=== PATIENT | female | born 1955 | race African-American/Black ===

== ENCOUNTER 2016-09-04 16:00 | Emergency (ER) | payer SELFPAY ==
[~2016-09-04] VITALS: Ht 162.6 cm; Wt 59.0 kg
[2016-09-04 16:01] VITALS: BP 144/66; PULSE 92; RESP 17; TEMP 98.1; O2SAT 98
--- NOTE | 2016-09-04 16:14 | PD ---
Physical Exam Date Seen by Provider: Sep 04, 2016 Time Seen by Provider: 16:12 Narrative 61 year old female presents to the emergency department for evaluation of LLQ pain for 2-3 days. No fevers, nausea, vomiting, diarrhea. Patient awaiting bed placement. Data Data Last Documented VS Vital Signs Date Time Temp Pulse Resp B/P Pulse Ox O2 Delivery O2 Flow Rate FiO2 09/04/16 16:01 98.1 92 17 144/66 98 MDM Supervised Visit with BENITO: Lauryn Fregoso Sep 04, 2016 16:14
[2016-09-04 17:25] VITALS: BP 143/70; PULSE 79; RESP 16; O2SAT 99
--- NOTE | 2016-09-04 17:29 | PD ---
HPI Chief Complaint: Abdominal Pain Time Seen by Provider: 17:29 Travel History International Travel<30 days: No Contact w/Intl Traveler<30days: No Traveled to known affect area: No History of Present Illness HPI 61-year-old female presents to the emergency department complaint of left lower quadrant abdominal pain for the last 2-3 days. She says it feels like gas pain. Denies history of diverticulosis. She took a laxative this morning and had a normal bowel movement. She denies hematochezia. Reports dysuria, urgency , frequency. Denies hematuria. Denies fever, chills, nausea, vomiting. No known allergies. Haven't established primary care provider. No other modifying factors or associated signs and symptoms. PFSH Past Medical History GERD: Yes ?: Not : 3 Para: 3 Past Surgical History Gynecologic Surgery: Yes (HYSTERECTOMY) Hysterectomy: Yes Social History Alcohol Use: No Tobacco Use: Yes (2 BLACK&MILDS DAILY ) Substance Use: No Allergies-Medications (Allergen,Severity, Reaction): Coded Allergies: No Known Allergies (Unverified , 09/04/16) Reported Meds & Prescriptions Reported Meds & Active Scripts Active No Active Prescriptions or Reported Medications Review of Systems Except as stated in HPI: all other systems reviewed are Neg Physical Exam Narrative GENERAL: Well-nourished, well-developed female patient, in no acute distress; afebrile; nontoxic appearing SKIN: Warm and dry. HEAD: Atraumatic. Normocephalic. EYES: Pupils equal and round. No scleral icterus. No injection or drainage. ENT: Mucosa pink and moist. Airway patent. NECK: Trachea midline. CARDIOVASCULAR: Regular rate and rhythm. No murmur appreciated. RESPIRATORY: No accessory muscle use. Clear to auscultation. Breath sounds equal bilaterally. GASTROINTESTINAL: Abdomen soft, tenderness on palpation to left lower quadrant, nondistended. Hepatic and splenic margins not palpable. Bowel sounds are active 4 quadrants. Nonrigid. No rebound tenderness. No guarding. Bladder nondistended and nontender on palpation. BACK: No CVA tenderness. MUSCULOSKELETAL: No obvious deformities. No clubbing. No cyanosis. No edema. NEUROLOGICAL: Awake and alert. Oriented 3. No obvious cranial nerve deficits. Motor grossly within normal limits. Normal speech. PSYCHIATRIC: Appropriate mood and affect; insight and judgment normal. Data Data Last Documented VS Vital Signs Date Time Temp Pulse Resp B/P Pulse Ox O2 Delivery O2 Flow Rate FiO2 09/04/16 19:31 64 17 133/60 97 Room Air 09/04/16 16:01 98.1 Orders Complete Blood Count With Diff (09/04/16 17:30) Comprehensive Metabolic Panel (09/04/16 17:30) Lipase (09/04/16 17:30) Urinalysis - C+S If Indicated (09/04/16 17:30) Ct Abd/Pel W Iv Contrast(Rout) (09/04/16 17:30) Iv Access Insert/Monitor (09/04/16 17:30) Ecg Monitoring (09/04/16 17:30) Oximetry (09/04/16 17:30) Sodium Chloride 0.9% Flush (Ns Flush) (09/04/16 17:30) Iohexol 350 Inj (Omnipaque 350 Inj) (09/04/16 19:07) Labs Laboratory Tests Test 09/04/16 09/04/16 17:46 19:25 White Blood Count 9.1 TH/MM3 Red Blood Count 4.41 MIL/MM3 Hemoglobin 12.8 GM/DL Hematocrit 37.5 % Mean Corpuscular Volume 85.1 FL Mean Corpuscular Hemoglobin 29.2 PG Mean Corpuscular Hemoglobin 34.3 % Concent Red Cell Distribution Width 13.3 % Platelet Count 263 TH/MM3 Mean Platelet Volume 8.3 FL Neutrophils (%) (Auto) 57.7 % Lymphocytes (%) (Auto) 29.4 % Monocytes (%) (Auto) 8.8 % Eosinophils (%) (Auto) 3.4 % Basophils (%) (Auto) 0.7 % Neutrophils # (Auto) 5.2 TH/MM3 Lymphocytes # (Auto) 2.7 TH/MM3 Monocytes # (Auto) 0.8 TH/MM3 Eosinophils # (Auto) 0.3 TH/MM3 Basophils # (Auto) 0.1 TH/MM3 CBC Comment DIFF FINAL Differential Comment Sodium Level 143 MEQ/L Potassium Level 3.9 MEQ/L Chloride Level 108 MEQ/L Carbon Dioxide Level 29.9 MEQ/L Anion Gap 5 MEQ/L Blood Urea Nitrogen 13 MG/DL Creatinine 0.73 MG/DL Estimat Glomerular Filtration 98 ML/MIN Rate Random Glucose 96 MG/DL Calcium Level 9.0 MG/DL Total Bilirubin 0.3 MG/DL Aspartate Amino Transf 16 U/L (AST/SGOT) Alanine Aminotransferase 15 U/L (ALT/SGPT) Alkaline Phosphatase 99 U/L Total Protein 7.3 GM/DL Albumin 3.6 GM/DL Lipase 102 U/L Urine Color YELLOW Urine Turbidity CLEAR Urine pH 6.5 Urine Specific [place] 1.025 Urine Protein TRACE mg/dL Urine Glucose (UA) NEG mg/dL Urine Ketones NEG mg/dL Urine Occult Blood NEG Urine Nitrite NEG Urine Bilirubin NEG Urine Urobilinogen 2.0 MG/DL Urine Leukocyte Esterase NEG Urine WBC 1 /hpf Urine Squamous Epithelial <1 /hpf Cells Urine Mucus FEW /lpf Microscopic Urinalysis Comment CULT NOT INDICATED MDM Medical Decision Making Medical Screen Exam Complete: Yes Emergency Medical Condition: Yes Medical Record Reviewed: Yes Differential Diagnosis Diverticulitis, diverticulosis, UTI, pyelonephritis Narrative Course 61-year-old female with left lower quadrant abdominal pain. She placed on cardiopulmonary monitor. IV site obtained. CBC, CMP, lipase ordered. EtOH abdomen/pelvis ordered. 1805: CBC unremarkable. 1835: CMP unremarkable. Lipase 102. 1948: CT abdomen/pelvis concludes No acute abnormality is seen. The cause of the patient's left lower quadrant pain is not seen; Small nonspecific hypodensities in the liver likely representing cysts or hemangiomas statistically. Findings were discussed with the patient and his copy of the CT was provided to the patient. Instructed patient to follow up outpatient for further testing and evaluation for CT findings. 1955: Urinalysis with no signs of infection. Patient to follow up with primary care provider and gastroenterology. She verbalizes understanding and agreement. Patient verbalizes understanding and agreement with treatment plan. Patient is medically cleared and stable for discharge. Discussed reasons to return to the emergency department. Instructed patient to follow up with primary care provider. Patient agrees with treatment plan. The patients vital signs are stable and the patient is stable for outpatient follow-up and treatment. Patient discharged home, stable and in no acute distress. 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
[2016-09-04] MEDS ORDERED: SODIUM CHLORIDE 0.9% FLUSH 10 ML FLUSH IV FLUSH PRN (17:30)
[2016-09-04 18:04] LABS: AUTOMATED NEUTROPHIL # 5.2 TH/MM3 (1.8-7.7); BASOPHIL # 0.1 TH/MM3 (0-0.2); BASOPHIL % 0.7 % (0.0-2.0); EOSINOPHIL # 0.3 TH/MM3 (0-0.4); EOSINOPHIL % 3.4 % (0.0-4.0); HEMATOCRIT 37.5 % (35.0-46.0); HEMO FLAGS DIFF FINAL; LYMPH % 29.4 % (9.0-44.0); LYMPHOCYTE # 2.7 TH/MM3 (1.0-4.8); MEAN CELL VOLUME 85.1 FL (80.0-100.0); MEAN CORPUSCULAR HEMOGLOBIN 29.2 PG (27.0-34.0); MEAN CORPUSCULAR HGB CONC 34.3 % (32.0-36.0); MONO % 8.8 % (0.0-8.0); NEUT % 57.7 % (16.0-70.0); PLATELET COUNT 263 TH/MM3 (150-450); RED BLOOD COUNT 4.41 MIL/MM3 (4.00-5.30); RED CELL DISTRIBUTION WIDTH 13.3 % (11.6-17.2); WHITE BLOOD COUNT 9.1 TH/MM3 (4.0-11.0)
[2016-09-04 18:22] LABS: ALT (GPT) 15 U/L (10-53); ANION GAP 5 MEQ/L (5-15); AST (GOT) 16 U/L (15-37); BICARBONATE 29.9 MEQ/L (21.0-32.0); BLOOD UREA NITROGEN 13 MG/DL (7-18); CHLORIDE 108 MEQ/L (98-107); GLOMERULAR FILTRATION RATE 98 ML/MIN (>89); POTASSIUM 3.9 MEQ/L (3.5-5.1); SODIUM (NA) 143 MEQ/L (136-145)
[2016-09-04 18:24] LABS: ALKALINE PHOSPHATASE 99 U/L (45-117); TOTAL BILIRUBIN ADULT 0.3 MG/DL (0.2-1.0)
[2016-09-04] MEDS ORDERED: IOHEXOL 350 MG/ML 10 ML VIAL (for RAD DIAG) IV ONE (19:07)
[2016-09-04 19:31] VITALS: BP 133/60; PULSE 64; RESP 17; O2SAT 97
--- NOTE | 2016-09-04 19:47 | RADRPT ---
EXAM DATE/TIME: 09/04/2016 18:54 [facility] COMPARISON: No previous studies available for comparison. INDICATIONS : Left lower quadrant pain with nausea, vomiting, and diarrhea. IV CONTRAST: 100 cc Omnipaque 350 (iohexol) IV ORAL CONTRAST: No oral contrast ingested. RADIATION DOSE: 6.64 CTDIvol (mGy) MEDICAL HISTORY : Gastroesophageal reflux disease. SURGICAL HISTORY : Hysterectomy. ENCOUNTER: Initial ACUITY: 3 days PAIN SCALE: 4/10 LOCATION: Left lower quadrant abdomen TECHNIQUE: Volumetric scanning of the abdomen and pelvis was performed. Using automated exposure control and ad justment of the mA and/or kV according to patient size, radiation dose was kept as low as reasonably achievable to obtain optimal diagnostic quality images. FINDINGS: LOWER LUNGS: The visualized lower lungs are clear. LIVER: There are small subcentimeter hypodensities in the liver. These are nonspecific. There is no dilati on of the biliary tree. No calcified gallstones. SPLEEN: Normal size without lesion. PANCREAS: Within normal limits. KIDNEYS: Normal in size and shape. There is no mass, stone or hydronephrosis. ADRENAL GLANDS: Within normal limits. VASCULAR: There is no aortic aneurysm. Vascular calcifications are seen. BOWEL/MESENTERY: The stomach, small bowel, and colon demonstrate no acute abnormality. There is no free intraperitone al air or fluid. ABDOMINAL WALL: Within normal limits. RETROPERITONEUM: There is no lymphadenopathy. BLADDER: No wall thickening or mass. REPRODUCTIVE: Within normal limits. INGUINAL: There is no lymphadenopathy or hernia. MUSCULOSKELETAL: Within normal limits for patient age. CONCLUSION: 1. No acute abnormality is seen. The cause of the patient's left lower quadrant pain is not seen. 2. Small nonspecific hypodensities in the liver likely representing cysts or hemangiomas statisticall y. Jun Martin MD on September 04, 2016 at 19:42 Board Certified Radiologist. This report was verified electronically.
[2016-09-04 19:51] LABS: BLOOD, URINE NEG (NEG); COMMENT (UR) CULT NOT INDICATED; CULTURE IF INDICATED CULT NOT INDICATED; GLUCOSE,URINE NEG (NEG); KETONE, URINE NEG (NEG); MUCUS URINE FEW /lpf (OCC); NITRITE,URINE NEG (NEG); PH, URINE 6.5 (5.0-8.5); SQUAMOUS EPITHELIAL CELL URINE <1 /hpf (0-5); URINE COLOR YELLOW (YELLW/STRAW)
== END 2016-09-04 20:22 | disposition home or self-care (01) ==
LOC: NEPD 16:00
DX: R10.32 Left lower quadrant pain (principal); R30.0 Dysuria; R39.15 Urgency of urination; R35.0 Frequency of micturition; Z72.0 Tobacco use; Z87.19 Personal history of other diseases of the digestive system
CPT/HCPCS: 74177; 80053; 81001; 83690; 85025; 99284; Q9967

== ENCOUNTER 2016-09-24 08:21 | Emergency (ER) | payer SELFPAY ==
[~2016-09-24] VITALS: Ht 160 cm; Wt 61.0 kg
[2016-09-24 08:23] VITALS: BP 127/64; PULSE 78; RESP 20; TEMP 97.5; O2SAT 100
[2016-09-24 08:43] VITALS: BP 138/72; PULSE 67; RESP 15; O2SAT 98
[2016-09-24] MEDS ORDERED: IBUP200T2 PO (08:47)
[2016-09-24] MEDS ORDERED: SODIUM CHLOR 0.9% 1000 ML INJ 1,000 ML IV SCH (08:51)
--- NOTE | 2016-09-24 08:53 | PD ---
HPI Chief Complaint: Abdominal Pain Time Seen by Provider: 08:51 Travel History International Travel<30 days: No Contact w/Intl Traveler<30days: No Traveled to known affect area: No History of Present Illness HPI 61-year-old female patient with history of gastroesophageal reflux disorder, presents to the ER today because she states that she is been having 1 month history of left upper quadrant abdominal pains which are worsened in last few days. She states that she has been taking ibuprofen for the pain. She reports mild nausea but denies any recent vomiting, diarrhea, or any other symptoms. She currently rates her pain at a 10 out of 10. She states it gets worse with eating and she does not even very much. Modifying Factors: None Associated Signs & Symptoms: Left upper quadrant abdominal pain with nausea Risk Factors: Worse with eating, history of GERD PFSH Past Medical History GERD: Yes : 3 Para: 3 Past Surgical History Gynecologic Surgery: Yes (HYSTERECTOMY) Hysterectomy: Yes Social History Alcohol Use: No Tobacco Use: Yes (2 BLACK&MILDS DAILY ) Substance Use: No Allergies-Medications (Allergen,Severity, Reaction): Coded Allergies: No Known Allergies (Unverified , 09/04/16) Reported Meds & Prescriptions Reported Meds & Active Scripts Active Reported Ibuprofen 200 Mg Tab 200 Mg PO Q4H PRN Review of Systems Except as stated in HPI: all other systems reviewed are Neg Physical Exam Narrative GENERAL: [Well-developed elderly -[place] female patient currently in no acute distress. Awake and oriented 3. SKIN: Focused skin assessment warm/dry. HEAD: Atraumatic. Normocephalic. EYES: Pupils equal and round. No scleral icterus. No injection or drainage. ENT: No nasal bleeding or discharge. Mucous membranes pink and moist. NECK: Trachea midline. No JVD. CARDIOVASCULAR: Regular rate and rhythm. No murmur appreciated. RESPIRATORY: No accessory muscle use. Clear to auscultation. Breath sounds equal bilaterally. GASTROINTESTINAL: Abdomen soft, left upper quadrant tenderness without guarding or rebound, nondistended. Hepatic and splenic margins not palpable. MUSCULOSKELETAL: No obvious deformities. No clubbing. No cyanosis. No edema. NEUROLOGICAL: Awake and alert. No obvious cranial nerve deficits. Motor grossly within normal limits. Normal speech. PSYCHIATRIC: Appropriate mood and affect; insight and judgment normal. Data Data Last Documented VS Vital Signs Date Time Temp Pulse Resp B/P Pulse Ox O2 Delivery O2 Flow Rate FiO2 09/24/16 08:43 67 15 138/72 98 09/24/16 08:23 97.5 Room Air Orders Complete Blood Count With Diff (09/24/16 08:51) Comprehensive Metabolic Panel (09/24/16 08:51) Lipase (09/24/16 08:51) Abdomen, Flat & Upright (09/24/16 ) Iv Access Insert/Monitor (09/24/16 08:51) Ecg Monitoring (09/24/16 08:51) Oximetry (09/24/16 08:51) Sodium Chlor 0.9% 1000 Ml Inj (Ns 1000 M (09/24/16 08:51) Sodium Chloride 0.9% Flush (Ns Flush) (09/24/16 09:00) Famotidine Inj (Pepcid Inj) (09/24/16 09:00) Labs Laboratory Tests Test 09/24/16 09:45 White Blood Count 7.9 TH/MM3 Red Blood Count 4.15 MIL/MM3 Hemoglobin 12.1 GM/DL Hematocrit 35.5 % Mean Corpuscular Volume 85.5 FL Mean Corpuscular Hemoglobin 29.1 PG Mean Corpuscular Hemoglobin 34.1 % Concent Red Cell Distribution Width 13.3 % Platelet Count 281 TH/MM3 Mean Platelet Volume 8.3 FL Neutrophils (%) (Auto) 56.5 % Lymphocytes (%) (Auto) 31.5 % Monocytes (%) (Auto) 6.7 % Eosinophils (%) (Auto) 4.1 % Basophils (%) (Auto) 1.2 % Neutrophils # (Auto) 4.5 TH/MM3 Lymphocytes # (Auto) 2.5 TH/MM3 Monocytes # (Auto) 0.5 TH/MM3 Eosinophils # (Auto) 0.3 TH/MM3 Basophils # (Auto) 0.1 TH/MM3 CBC Comment DIFF FINAL Differential Comment Sodium Level 142 MEQ/L Potassium Level 3.9 MEQ/L Chloride Level 107 MEQ/L Carbon Dioxide Level 29.1 MEQ/L Anion Gap 6 MEQ/L Blood Urea Nitrogen 12 MG/DL Creatinine 0.74 MG/DL Estimat Glomerular Filtration 97 ML/MIN Rate Random Glucose 83 MG/DL Calcium Level 9.0 MG/DL Total Bilirubin 0.5 MG/DL Aspartate Amino Transf 15 U/L (AST/SGOT) Alanine Aminotransferase 14 U/L (ALT/SGPT) Alkaline Phosphatase 100 U/L Total Protein 7.6 GM/DL Albumin 3.8 GM/DL Lipase 83 U/L [facility] Medical Decision Making Medical Screen Exam Complete: Yes Emergency Medical Condition: Yes Medical Record Reviewed: Yes Interpretation(s) Laboratory Tests Test 09/24/16 09:45 Eosinophils (%) (Auto) 4.1 % (0.0-4.0) Differential Diagnosis Left upper quadrant pains with nauseagastritis versus gastroenteritis versus GERD versus pancreatitis Narrative Course X-ray did not show any signs of obstruction. Lab work shows no significant leukocytosis or signs of dehydration. Symptoms are indicative of a underlying gastritis which may be worsening with her use of ibuprofen. My plan would be to give her acid blocking medications with follow-up to primary care physician. She needs to avoid NSAID use. Return for any worsening in symptoms as necessary. The plan has been discussed with her and she states understanding. Diagnosis Primary Impression: Gastritis Med/Other Pt SpecificInfo: Prescription(s) given Scripts Famotidine (Pepcid)40 Mg Tab40 Mg PO BID #60 TAB Ref 0 Prov:Suki Estes MD 09/24/16 Disposition: DISCHARGE HOME Condition: Stable Suki Estes MD Sep 24, 2016 08:53
[2016-09-24] MEDS ORDERED: FAMOTIDINE 20 MG/2 ML VIAL IV PUSH ONE (09:00)
[2016-09-24] MEDS ORDERED: SODIUM CHLORIDE 0.9% FLUSH 10 ML FLUSH IV FLUSH PRN (09:00)
[2016-09-24 10:00] LABS: AUTOMATED NEUTROPHIL # 4.5 TH/MM3 (1.8-7.7); BASOPHIL # 0.1 TH/MM3 (0-0.2); BASOPHIL % 1.2 % (0.0-2.0); EOSINOPHIL # 0.3 TH/MM3 (0-0.4); EOSINOPHIL % 4.1 % (0.0-4.0); HEMATOCRIT 35.5 % (35.0-46.0); HEMO FLAGS DIFF FINAL; LYMPH % 31.5 % (9.0-44.0); LYMPHOCYTE # 2.5 TH/MM3 (1.0-4.8); MEAN CELL VOLUME 85.5 FL (80.0-100.0); MEAN CORPUSCULAR HEMOGLOBIN 29.1 PG (27.0-34.0); MEAN CORPUSCULAR HGB CONC 34.1 % (32.0-36.0); MONO % 6.7 % (0.0-8.0); NEUT % 56.5 % (16.0-70.0); PLATELET COUNT 281 TH/MM3 (150-450); RED BLOOD COUNT 4.15 MIL/MM3 (4.00-5.30); RED CELL DISTRIBUTION WIDTH 13.3 % (11.6-17.2); WHITE BLOOD COUNT 7.9 TH/MM3 (4.0-11.0)
[2016-09-24 10:20] LABS: ANION GAP 6 MEQ/L (5-15); AST (GOT) 15 U/L (15-37); BICARBONATE 29.1 MEQ/L (21.0-32.0); BLOOD UREA NITROGEN 12 MG/DL (7-18); CHLORIDE 107 MEQ/L (98-107); GLOMERULAR FILTRATION RATE 97 ML/MIN (>89); POTASSIUM 3.9 MEQ/L (3.5-5.1); SODIUM (NA) 142 MEQ/L (136-145)
[2016-09-24 10:25] LABS: ALKALINE PHOSPHATASE 100 U/L (45-117); ALT (GPT) 14 U/L (10-53); TOTAL BILIRUBIN ADULT 0.5 MG/DL (0.2-1.0)
[2016-09-24] MEDS ORDERED: FAMO1TAB73 PO (10:32)
--- NOTE | 2016-09-24 11:41 | RADRPT ---
EXAM DATE/TIME: 09/24/2016 09:15 [facility] COMPARISON: No previous studies available for comparison. INDICATIONS : Abdomen pain, nausea MEDICAL HISTORY : None. SURGICAL HISTORY : Hysterectomy. ENCOUNTER: Initial ACUITY: 3 weeks PAIN SCORE: 6/10 LOCATION: Bilateral abdomen FINDINGS: Supine and upright views of the abdomen were performed. The abdominal bowel gas pattern is normal. No air fluid levels are seen. No abnormal masses, calcifications, or organomegaly is seen. The visu alized lower lungs are clear. No evidence of free intraperitoneal gas. The osseous structures are u nremarkable. CONCLUSION: Unremarkable bowel gas pattern. Anshu Villarreal MD on September 24, 2016 at 11:35 Board Certified Radiologist. This report was verified electronically.
== END 2016-09-24 10:40 | disposition home or self-care (01) ==
LOC: NEPC 08:21
DX: K29.70 Gastritis, unspecified, without bleeding (principal)
CPT/HCPCS: 74020; 80053; 83690; 85025; 96374; 99284; J7030

== ENCOUNTER 2016-11-18 07:20 | Emergency (ER) | payer SELFPAY ==
[~2016-11-18 07:20] MED LIST: FAMO1TAB73 PO; IBUP200T2 PO
[2016-11-18 07:21] VITALS: BP 119/57; PULSE 89; RESP 13; TEMP 89.9; O2SAT 100
[2016-11-18] MEDS ORDERED: OMEP40CA2 PO (08:00)
[2016-11-18] MEDS ORDERED: ALUMINUM/MAGNESIUM/SIMETH 30 ML CUP PO ONE (08:00)
[2016-11-18] MEDS ORDERED: LIDOCAINE VISCOUS 2% SOLN 15 ML UDC PO ONE (08:00)
[2016-11-18] MEDS ORDERED: ATROPINE/SCOPOLAM/HYOSCYAM/PB ELIXIR 10 ML CUP PO ONE (08:00)
[2016-11-18] MEDS ORDERED: SUCR1TAB PO (08:00)
--- NOTE | 2016-11-18 08:00 | PD ---
HPI Chief Complaint: Abdominal Pain Time Seen by Provider: 07:47 Travel History International Travel<30 days: No Contact w/Intl Traveler<30days: No Traveled to known affect area: No History of Present Illness HPI This is a 61-year-old female who presents to the emergency department with several weeks of epigastric discomfort, moderate severity, worse after she eats , associated with some nausea and decreased appetite. She denies any vomiting. She has had some loose stools. She denies any fevers or chills. She was seen here in the emergency department in August twice for similar symptoms. She had a CT abdomen and pelvis which was reassuring. On her second visit she had repeat blood work done and she was discharged on an H2 sindi. She says she's run out of this medication. She has been told in the past many years ago that she has an ulcer. PFSH Past Medical History GERD: Yes Tetanus Vaccination: Unknown Influenza Vaccination: No ?: Not : 3 Para: 3 Past Surgical History Gynecologic Surgery: Yes (HYSTERECTOMY) Hysterectomy: Yes Social History Alcohol Use: Yes (SELDOM ) Tobacco Use: Yes (2 BLACK&MILDS DAILY ) Substance Use: No Allergies-Medications (Allergen,Severity, Reaction): Coded Allergies: No Known Allergies (Unverified , 09/04/16) Reported Meds & Prescriptions Reported Meds & Active Scripts Active Pepcid (Famotidine) 40 Mg Tab 40 Mg PO BID Reported Ibuprofen 200 Mg Tab 200 Mg PO Q4H PRN Review of Systems Except as stated in HPI: all other systems reviewed are Neg Physical Exam Narrative GENERAL:Well appearing, no acute distress SKIN: Focused skin assessment warm and dry. HEAD: Atraumatic. Normocephalic. EYES: Pupils equal and round. No injection or drainage. ENT: Moist mucous membranes NECK: Trachea midline. CARDIOVASCULAR: Regular rate and rhythm. No murmur appreciated. RESPIRATORY: Clear to auscultation. Breath sounds equal bilaterally. GASTROINTESTINAL: Abdomen soft, mildly tender to palpation in the epigastrium with no rebound or guarding. MUSCULOSKELETAL: No obvious deformities. NEUROLOGICAL: Awake and alert. No obvious cranial nerve deficits. Moving all extremities. PSYCHIATRIC: Appropriate mood and affect; insight and judgment normal. Data Data Last Documented VS Vital Signs Date Time Temp Pulse Resp B/P Pulse Ox O2 Delivery O2 Flow Rate FiO2 11/18/16 07:50 18 11/18/16 07:21 89.9 89 119/57 100 MDM Medical Decision Making Medical Screen Exam Complete: Yes Emergency Medical Condition: Yes Differential Diagnosis Gastritis, peptic ulcer disease, pancreatitis, cholelithiasis, cholecystitis Narrative Course This is a 61-year-old female who presents to the emergency department with epigastric discomfort that appears to be acute on chronic. She's had no vomiting or fever to suggest cholecystitis. She doesn't drink alcohol. She is mostly tender in the epigastrium. Her vital signs are reassuring. I suspect that she has peptic ulcer disease. I explained to her that definitive diagnosis needs to be made by endoscopy. I told her I didn't necessarily want to repeat labs and CT imaging that she's already had performed when I didn't think it would come to a definitive diagnosis. She is amenable to the plan of symptomatic management. She is currently in the process of getting insurance. I think she would most benefit from outpatient gastroenterology follow-up. Patient will be discharged home. She was asked if she has worsening symptoms to return to the ER at which time we'll pursue more diagnostic testing. Diagnosis Primary Impression: Gastritis Qualified Code: K29.50 - Chronic gastritis without bleeding, unspecified gastritis type Referrals: [facility] Patient Instructions: General Instructions Additional Instructions: If you develop severe or worsening abdominal pain, fever>100.4, persistent vomiting or inability to eat or drink return to the emergency department immediately. Med/Other Pt SpecificInfo: Prescription(s) given Scripts Sucralfate 1 Gm Tab1 Gm PO TID #90 TAB Ref 0 on empty stomach Prov:Marixa Hester MD 11/18/16 Omeprazole 40 Mg Cap40 Mg PO DAILY #30 CAP Ref 0 Prov:Marixa Hester MD 11/18/16 Disposition: 01 DISCHARGE HOME Condition: Stable Marixa Hester MD Nov 18, 2016 08:00
[2016-11-18 08:07] VITALS: TEMP 98.8
== END 2016-11-18 08:31 | disposition home or self-care (01) ==
LOC: NEPE 07:20
DX: K29.70 Gastritis, unspecified, without bleeding (principal); K21.9 Gastro-esophageal reflux disease without esophagitis; Z72.0 Tobacco use; Z79.899 Other long term (current) drug therapy
CPT/HCPCS: 99284

== ENCOUNTER 2017-03-11 09:32 | Emergency (ER) | payer SELFPAY ==
[~2017-03-11] VITALS: Ht 167.6 cm; Wt 53.0 kg
[~2017-03-11 09:32] MED LIST changes: +OMEP40CA2 PO; +SUCR1TAB PO
[2017-03-11 09:35] VITALS: BP 146/65; PULSE 83; RESP 18; TEMP 97.7; O2SAT 100
[2017-03-11] MEDS ORDERED: SODIUM CHLOR 0.9% 1000 ML INJ 1,000 ML IV SCH (10:06)
[2017-03-11] MEDS ORDERED: ONDANSETRON HCL 4 MG/2 ML VIAL IVP ONE (10:15)
[2017-03-11] MEDS ORDERED: KETOROLAC TROMETHAMINE 30 MG/ML (IVP) VIAL IVP ONE (10:15)
[2017-03-11] MEDS ORDERED: SODIUM CHLORIDE 0.9% FLUSH 10 ML FLUSH IV FLUSH PRN (10:15)
[2017-03-11 10:37] VITALS: BP 142/61; PULSE 53; RESP 17; TEMP 97.8; O2SAT 100
[2017-03-11 10:57] LABS: AUTOMATED NEUTROPHIL # 4.2 TH/MM3 (1.8-7.7); BASOPHIL # 0.1 TH/MM3 (0-0.2); BASOPHIL % 0.7 % (0.0-2.0); EOSINOPHIL # 0.3 TH/MM3 (0-0.4); EOSINOPHIL % 3.4 % (0.0-4.0); HEMATOCRIT 32.5 % (35.0-46.0); HEMO FLAGS DIFF FINAL; LYMPH % 33.6 % (9.0-44.0); LYMPHOCYTE # 2.6 TH/MM3 (1.0-4.8); MEAN CELL VOLUME 83.2 FL (80.0-100.0); MEAN CORPUSCULAR HEMOGLOBIN 27.4 PG (27.0-34.0); MEAN CORPUSCULAR HGB CONC 32.9 % (32.0-36.0); MONO % 8.4 % (0.0-8.0); NEUT % 53.9 % (16.0-70.0); PLATELET COUNT 323 TH/MM3 (150-450); RED CELL DISTRIBUTION WIDTH 14.5 % (11.6-17.2); WHITE BLOOD COUNT 7.9 TH/MM3 (4.0-11.0)
[2017-03-11 11:08] LABS: APTT (PATIENT) 30.4 SEC (24.3-30.1); PROTHROMBIN TIME - PATIENT 10.6 SEC (9.8-11.6)
[2017-03-11 11:16] LABS: BLOOD, URINE NEG (NEG); COMMENT (UR) CULT NOT INDICATED; GLUCOSE,URINE NEG (NEG); KETONE, URINE NEG (NEG); MUCUS URINE FEW /lpf (OCC); NITRITE,URINE NEG (NEG); PH, URINE 7.5 (5.0-8.5); TRIPLE PHOSPHATE CRYSTAL,URINE RARE /hpf; URINE COLOR YELLOW (YELLW/STRAW)
[2017-03-11 11:18] LABS: CULTURE IF INDICATED CULT NOT INDICATED
[2017-03-11 11:27] LABS: ALT (GPT) 13 U/L (10-53); ANION GAP 8 MEQ/L (5-15); AST (GOT) 19 U/L (15-37); BICARBONATE 27.6 MEQ/L (21.0-32.0); BLOOD UREA NITROGEN 12 MG/DL (7-18); CHLORIDE 104 MEQ/L (98-107); GLOMERULAR FILTRATION RATE 116 ML/MIN (>89); POTASSIUM 3.6 MEQ/L (3.5-5.1); SODIUM (NA) 140 MEQ/L (136-145)
[2017-03-11 11:30] LABS: ALKALINE PHOSPHATASE 103 U/L (45-117); TOTAL BILIRUBIN ADULT 0.4 MG/DL (0.2-1.0)
--- NOTE | 2017-03-11 11:38 | PD ---
HPI Chief Complaint: GI Complaint Time Seen by Provider: 10:00 Travel History International Travel<30 days: No Contact w/Intl Traveler<30days: No Traveled to known affect area: No History of Present Illness HPI Patient is a 62 year old female who comes in complaining of abdominal pain. She says she has had lower abdominal pain for the past 2-3 months. She says the pain got worse last night at work, so she came in. She says she has nausea , but no vomiting. She denies burning on urination. she denies any vaginal discharge and says she is not sexually active. She denies fever or chills, but says she has experienced some weight loss. PFSH Past Medical History GERD: Yes Hypertension: Yes Tetanus Vaccination: Unknown Influenza Vaccination: No ?: Not : 3 Para: 3 Past Surgical History Gynecologic Surgery: Yes (HYSTERECTOMY) Hysterectomy: Yes Social History Alcohol Use: Yes (SELDOM ) Tobacco Use: Yes (2 BLACK&MILDS DAILY ) Substance Use: No Allergies-Medications (Allergen,Severity, Reaction): Coded Allergies: No Known Allergies (Unverified , 03/11/17) Reported Meds & Prescriptions Reported Meds & Active Scripts Active Sucralfate 1 Gm Tab 1 Gm PO TID on empty stomach Omeprazole 40 Mg Cap 40 Mg PO DAILY Pepcid (Famotidine) 40 Mg Tab 40 Mg PO BID Reported Ibuprofen 200 Mg Tab 200 Mg PO Q4H PRN Review of Systems Except as stated in HPI: all other systems reviewed are Neg General / Constitutional: No: Fever, Chills Eyes: No: Blurred Vision HENT: No: Headaches, Lightheadedness Cardiovascular: No: Chest Pain or Discomfort Respiratory: No: Shortness of Breath Gastrointestinal: Positive: Nausea, Abdominal Pain, No: Vomiting Genitourinary: No: Dysuria, Discharge Musculoskeletal: No: Myalgias, Edema Skin: No Rash, No Change in Pigmentation, No Lesions Neurologic: No: Weakness, Dizziness Physical Exam Narrative GENERAL: Awake and alert, in no acute distress. SKIN: Focused skin assessment warm/dry. no evidence of infection. HEAD: Atraumatic. Normocephalic. EYES: Pupils equal and round. No scleral icterus. ENT: Mucous membranes pink and moist. NECK: Trachea midline. No JVD. CARDIOVASCULAR: Regular rate and rhythm. No murmur appreciated. RESPIRATORY: No accessory muscle use. Clear to auscultation. Breath sounds equal bilaterally. GASTROINTESTINAL: Abdomen soft, nondistended. Mild tenderness to the lower abdomen. No rebound or guarding. MUSCULOSKELETAL: No obvious deformities. No clubbing. No cyanosis. No edema. NEUROLOGICAL: Awake and alert. No obvious cranial nerve deficits. Motor grossly within normal limits. Normal speech. PSYCHIATRIC: Appropriate mood and affect; insight and judgment normal. Data Data Last Documented VS Vital Signs Date Time Temp Pulse Resp B/P (MAP) Pulse Ox O2 Delivery O2 Flow Rate FiO2 03/11/17 12:02 50 18 142/65 (90) 99 Room Air 03/11/17 10:37 97.8 Orders Orders Complete Blood Count With Diff (03/11/17 10:06) Comprehensive Metabolic Panel (03/11/17 10:06) Lipase (03/11/17 10:06) Prothrombin Time / Inr (Pt) (03/11/17 10:06) Act Partial Throm Time (Ptt) (03/11/17 10:06) Urinalysis - C+S If Indicated (03/11/17 10:06) Ct Abd/Pel W Iv Contrast(Rout) (03/11/17 10:06) Iv Access Insert/Monitor (03/11/17 10:06) Ecg Monitoring (03/11/17 10:06) Oximetry (03/11/17 10:06) Ondansetron Inj (Zofran Inj) (03/11/17 10:15) Sodium Chlor 0.9% 1000 Ml Inj (Ns 1000 M (03/11/17 10:06) Sodium Chloride 0.9% Flush (Ns Flush) (03/11/17 10:15) Ketorolac Inj (Toradol Inj) (03/11/17 10:15) Iohexol 350 Inj (Omnipaque 350 Inj) (03/11/17 12:17) Labs Laboratory Tests Test 03/11/17 10:30 White Blood Count 7.9 TH/MM3 Red Blood Count 3.90 MIL/MM3 Hemoglobin 10.7 GM/DL Hematocrit 32.5 % Mean Corpuscular Volume 83.2 FL Mean Corpuscular Hemoglobin 27.4 PG Mean Corpuscular Hemoglobin Concent 32.9 % Red Cell Distribution Width 14.5 % Platelet Count 323 TH/MM3 Mean Platelet Volume 7.8 FL Neutrophils (%) (Auto) 53.9 % Lymphocytes (%) (Auto) 33.6 % Monocytes (%) (Auto) 8.4 % Eosinophils (%) (Auto) 3.4 % Basophils (%) (Auto) 0.7 % Neutrophils # (Auto) 4.2 TH/MM3 Lymphocytes # (Auto) 2.6 TH/MM3 Monocytes # (Auto) 0.7 TH/MM3 Eosinophils # (Auto) 0.3 TH/MM3 Basophils # (Auto) 0.1 TH/MM3 CBC Comment DIFF FINAL Differential Comment Prothrombin Time 10.6 SEC Prothromb Time International Ratio 1.0 RATIO Activated Partial Thromboplast Time 30.4 SEC Urine Color YELLOW Urine Turbidity HAZY Urine pH 7.5 Urine Specific [place] 1.017 Urine Protein NEG mg/dL Urine Glucose (UA) NEG mg/dL Urine Ketones NEG mg/dL Urine Occult Blood NEG Urine Nitrite NEG Urine Bilirubin NEG Urine Urobilinogen LESS THAN 2.0 MG/DL Urine Leukocyte Esterase NEG Urine RBC 1 /hpf Urine WBC 2 /hpf Urine Triple Phosphate Crystals RARE /hpf Urine Amorphous Sediment RARE Urine Mucus FEW /lpf Microscopic Urinalysis Comment CULT NOT INDICATED Blood Urea Nitrogen 12 MG/DL Creatinine 0.63 MG/DL Random Glucose 89 MG/DL Total Protein 7.2 GM/DL Albumin 3.6 GM/DL Calcium Level 9.3 MG/DL Alkaline Phosphatase 103 U/L Aspartate Amino Transf (AST/SGOT) 19 U/L Alanine Aminotransferase (ALT/SGPT) 13 U/L Total Bilirubin 0.4 MG/DL Sodium Level 140 MEQ/L Potassium Level 3.6 MEQ/L Chloride Level 104 MEQ/L Carbon Dioxide Level 27.6 MEQ/L Anion Gap 8 MEQ/L Estimat Glomerular Filtration Rate 116 ML/MIN Lipase 74 U/L [facility] Medical Decision Making Medical Screen Exam Complete: Yes Emergency Medical Condition: Yes Medical Record Reviewed: Yes Differential Diagnosis UTI vs ovarian cyst vs colitis vs fibroid Narrative Course Patient is a 62 year old female who comes in complaining of lower abdominal pain. Exam shows mild tenderness to palpation. IV established, labs sent. Labs show no acute abnormalities. CT abd/pelvis shows no acute abnormalities. Given Toradol and IVF. She reports feeling better and is hungry. She is advised to follow up with gynecology. Advised to follow up with gastroenterology. Advised to return to the ED as needed for any worsening symptoms. Diagnosis Primary Impression: Abdominal pain Qualified Codes: R10.30 - Lower abdominal pain, unspecified Patient Instructions: Abdominal Pain (ED), General Instructions Additional Instructions: Follow up with gynecology and gastroenterology. Take Ibuprofen as needed for pain. Return to the ED as needed for any worsening symptoms. Disposition: 01 DISCHARGE HOME Condition: Stable Nina Zavaleta MD Mar 11, 2017 11:38
[2017-03-11 12:02] VITALS: BP 142/65; PULSE 50; RESP 18; O2SAT 99
[2017-03-11] MEDS ORDERED: IOHEXOL 350 MG/ML 10 ML VIAL (for RAD DIAG) IVCONTRAST ONE (12:17)
--- NOTE | 2017-03-11 12:46 | RADRPT ---
EXAM DATE/TIME: 03/11/2017 12:15 [facility] COMPARISON: CT ABDOMEN & PELVIS W CONTRAST, September 04, 2016, 18:54. INDICATIONS : Lower abdominal pain. IV CONTRAST: 71 cc Omnipaque 350 (iohexol) IV ORAL CONTRAST: No oral contrast ingested. RADIATION DOSE: 4.85 CTDIvol (mGy) MEDICAL HISTORY : Hypertension. SURGICAL HISTORY : Hysterectomy. ENCOUNTER: Initial ACUITY: 1 month PAIN SCALE: 7/10 LOCATION: Bilateral lower quadrant TECHNIQUE: Volumetric scanning of the abdomen and pelvis was performed. Using automated exposure control and ad justment of the mA and/or kV according to patient size, radiation dose was kept as low as reasonably achievable to obtain optimal diagnostic quality images. DICOM format image data is available electro nically for review and comparison. FINDINGS: LOWER LUNGS: The visualized lower lungs are clear. LIVER: Homogeneous density without lesion. There is no dilation of the biliary tree. No calcified gallston es. SPLEEN: Normal size without lesion. PANCREAS: Within normal limits. KIDNEYS: Normal in size and shape. There is no mass, stone or hydronephrosis. ADRENAL GLANDS: Within normal limits. VASCULAR: There is no aortic aneurysm. BOWEL/MESENTERY: The stomach, small bowel, and colon demonstrate no acute abnormality. There is no free intraperitone al air or fluid. ABDOMINAL WALL: Within normal limits. RETROPERITONEUM: There is no lymphadenopathy. BLADDER: No wall thickening or mass. REPRODUCTIVE: A trace amount of free fluid within the pelvis. Prior hysterectomy. No adnexal mass. INGUINAL: There is no lymphadenopathy or hernia. MUSCULOSKELETAL: Within normal limits for patient age. CONCLUSION: 1. Trace of free fluid within the pelvis. 2. Prior hysterectomy. 3. No acute abnormality to explain the patient's pain. Naresh Butler Jr., MD on March 11, 2017 at 12:38 Board Certified Radiologist. This report was verified electronically.
[2017-03-11 13:38] VITALS: BP 142/65
== END 2017-03-11 13:39 | disposition home or self-care (01) ==
LOC: NEPD 09:32
DX: R10.30 Lower abdominal pain, unspecified (principal); K21.9 Gastro-esophageal reflux disease without esophagitis; I10 Essential (primary) hypertension; F17.200 Nicotine dependence, unspecified, uncomplicated
CPT/HCPCS: 74177; 80053; 81001; 83690; 85025; 85610; 85730; 96361; 96374; 96375; 99285; J1885; J2405; J7030; Q9967

== ENCOUNTER 2017-04-23 08:55 | Emergency (ER) | payer SELFPAY ==
[~2017-04-23] VITALS: Ht 175.3 cm; Wt 50.0 kg
[~2017-04-23 08:55] MED LIST changes: -IBUP200T2 PO; +IBUP200T47 PO
[2017-04-23 08:57] VITALS: BP 121/58; PULSE 89; RESP 16; TEMP 98.1; O2SAT 98
[2017-04-23] MEDS ORDERED: SODIUM CHLOR 0.9% 1000 ML INJ 1,000 ML IV SCH (09:14)
[2017-04-23] MEDS ORDERED: MORPHINE SULFATE 4 MG/ML INJ IV PUSH ONE (09:15)
[2017-04-23] MEDS ORDERED: ONDANSETRON HCL 4 MG/2 ML VIAL IVP ONE (09:15)
[2017-04-23] MEDS ORDERED: SODIUM CHLORIDE 0.9% FLUSH 10 ML FLUSH IV FLUSH PRN (09:15)
[2017-04-23] MEDS ORDERED: DIATRIZOATE MEGLUM/DIATRIZOATE SOD 9 ML CUP ONE (09:20)
[2017-04-23 09:29] VITALS: O2SAT 100
--- NOTE | 2017-04-23 09:37 | PD ---
HPI Chief Complaint: GI Complaint Time Seen by Provider: 09:14 Travel History International Travel<30 days: No Contact w/Intl Traveler<30days: No Traveled to known affect area: No History of Present Illness HPI This is a 62-year-old female with a history of reported hypertension, who presents today with complaints of abdominal pain with associated nausea. Patient states she's had it for "quite some time". She denies any fevers, chills. She denies any vomiting but does state that she severely nauseous. Patient also gives history that she's had a 21 pound weight loss in the last 6 months to a year. She states she is not trying to lose weight. Patient also reports constipation 2 days. Patient does smoke cigarettes. She has no reported significant medical history other than the hypertension which she does not take medications for. PFSH Past Medical History Cardiovascular Problems: Yes Diminished Hearing: No Gastrointestinal Disorders: Yes GERD: Yes Hypertension: Yes (PT STATES DOES NOT TAKE MEDS) Tetanus Vaccination: > 5 Years Influenza Vaccination: No ?: Not : 3 Para: 3 Past Surgical History Gynecologic Surgery: Yes (HYSTERECTOMY) Hysterectomy: Yes Social History Alcohol Use: Yes (RARE) Tobacco Use: Yes (2 BLACK&MILDS DAILY ) Substance Use: No Allergies-Medications (Allergen,Severity, Reaction): Coded Allergies: No Known Allergies (Verified Adverse Reaction, Unknown, 04/23/17) Reported Meds & Prescriptions Reported Meds & Active Scripts Active Hydrocodone-Acetamin 2.5-325 (Hydrocodone/Acetaminophen) 2.5 Mg-325 Mg Tablet 1 Tab PO Q6HR Flagyl (Metronidazole) 500 Mg Tab 500 Mg PO TID 10 Days Ciprofloxacin (Ciprofloxacin HCl) 500 Mg Tab 500 Mg PO BID 10 Days Review of Systems Except as stated in HPI: all other systems reviewed are Neg General / Constitutional: No: Fever, Chills HENT: No: Headaches, Lightheadedness Cardiovascular: No: Chest Pain or Discomfort, Palpitations Respiratory: No: Cough, Shortness of Breath Gastrointestinal: Positive: Nausea, Abdominal Pain (generalized and left lower quadrant), Constipation, No: Vomiting, Diarrhea Genitourinary: No: Frequency, Dysuria, Decreased Urinary Output Musculoskeletal: Positive: Weakness (mild generalized), No: Pain Skin: No Rash, No Lesions Neurologic: No: Headache Physical Exam Narrative GENERAL: Cachectic thin-appearing female in no acute respiratory distress. SKIN: Focused skin assessment warm/dry. HEAD: Atraumatic. Normocephalic. EYES: Questionable mild scleral icterus. No injection or drainage. ENT: No nasal bleeding or discharge. Mucous membranes pink and moist. NECK: Trachea midline. No JVD. CARDIOVASCULAR: Regular rate and rhythm. No murmur appreciated. RESPIRATORY: No accessory muscle use. Clear to auscultation. Breath sounds equal bilaterally. GASTROINTESTINAL: Abdomen soft, thin, tender to the left lower quadrant. There were no pulsatile masses. No rebound or guarding. MUSCULOSKELETAL: No obvious deformities. No clubbing. No cyanosis. No edema. NEUROLOGICAL: Awake and alert. No obvious cranial nerve deficits. Motor grossly within normal limits. Normal speech. PSYCHIATRIC: Appropriate mood and affect; insight and judgment normal. Data Data Last Documented VS Vital Signs Date Time Temp Pulse Resp B/P (MAP) Pulse Ox O2 Delivery O2 Flow Rate FiO2 04/23/17 13:21 75 14 125/60 (81) 98 04/23/17 09:29 Room Air 04/23/17 08:57 98.1 Orders Orders Complete Blood Count With Diff (04/23/17 09:14) Comprehensive Metabolic Panel (04/23/17 09:14) Lipase (04/23/17 09:14) Lactic Acid (04/23/17 09:14) Urinalysis - C+S If Indicated (04/23/17 09:14) Ct Abd/Pel W Iv Contrast(Rout) (04/23/17 09:14) Iv Access Insert/Monitor (04/23/17 09:14) Ecg Monitoring (04/23/17 09:14) Oximetry (04/23/17 09:14) Morphine Inj (Morphine Inj) (04/23/17 09:15) Ondansetron Inj (Zofran Inj) (04/23/17 09:15) Sodium Chlor 0.9% 1000 Ml Inj (Ns 1000 M (04/23/17 09:14) Sodium Chloride 0.9% Flush (Ns Flush) (04/23/17 09:15) Electrocardiogram (04/23/17 09:14) Chest, Single Ap (04/23/17 09:14) Diatrizoate Liq ( Gastroview Liq) (04/23/17 09:20) Oral Contrast - Adult (04/23/17 09:24) Mandatory Outpatient Referral (04/23/17 13:13) Labs Laboratory Tests Test 04/23/17 09:15 04/23/17 11:05 White Blood Count 9.2 TH/MM3 Red Blood Count 3.84 MIL/MM3 Hemoglobin 10.6 GM/DL Hematocrit 31.8 % Mean Corpuscular Volume 82.7 FL Mean Corpuscular Hemoglobin 27.5 PG Mean Corpuscular Hemoglobin Concent 33.3 % Red Cell Distribution Width 13.4 % Platelet Count 322 TH/MM3 Mean Platelet Volume 8.0 FL Neutrophils (%) (Auto) 51.5 % Lymphocytes (%) (Auto) 35.0 % Monocytes (%) (Auto) 8.6 % Eosinophils (%) (Auto) 4.1 % Basophils (%) (Auto) 0.8 % Neutrophils # (Auto) 4.7 TH/MM3 Lymphocytes # (Auto) 3.2 TH/MM3 Monocytes # (Auto) 0.8 TH/MM3 Eosinophils # (Auto) 0.4 TH/MM3 Basophils # (Auto) 0.1 TH/MM3 CBC Comment DIFF FINAL Differential Comment Blood Urea Nitrogen 14 MG/DL Creatinine 0.69 MG/DL Random Glucose 88 MG/DL Total Protein 7.4 GM/DL Albumin 3.4 GM/DL Calcium Level 9.1 MG/DL Alkaline Phosphatase 90 U/L Aspartate Amino Transf (AST/SGOT) 13 U/L Alanine Aminotransferase (ALT/SGPT) 14 U/L Total Bilirubin 0.6 MG/DL Sodium Level 139 MEQ/L Potassium Level 3.9 MEQ/L Chloride Level 106 MEQ/L Carbon Dioxide Level 27.3 MEQ/L Anion Gap 6 MEQ/L Estimat Glomerular Filtration Rate 104 ML/MIN Lactic Acid Level 0.6 mmol/L Lipase 80 U/L Urine Color LIGHT-YELLOW Urine Turbidity CLEAR Urine pH 5.5 Urine Specific [place] 1.006 Urine Protein NEG mg/dL Urine Glucose (UA) NEG mg/dL Urine Ketones NEG mg/dL Urine Occult Blood NEG Urine Nitrite NEG Urine Bilirubin NEG Urine Urobilinogen LESS THAN 2.0 MG/DL Urine Leukocyte Esterase NEG Urine RBC 1 /hpf Urine WBC 2 /hpf Urine Squamous Epithelial Cells <1 /hpf Microscopic Urinalysis Comment CULT NOT INDICATED MDM Medical Decision Making Medical Screen Exam Complete: Yes Emergency Medical Condition: Yes Differential Diagnosis Diverticulitis versus colitis versus metastatic disease Narrative Course 60-year-old female presents with abdominal pain. Patient also reports weight loss of 21 pounds over the last 6+ months. The patient has no history of GI disorders. CAT scan shows a mid bowel and descending bowel abnormalities consistent with colitis versus mass. The patient will be treated with ciprofloxacin and Flagyl for 10 days. They're also be a mandatory referral placed for a colonoscopy. I discussed with patient that this could be diverticulitis or colitis and will be treated with antibiotics however still important that we have her see a [place] machine operator to rule out any oncological issue. She'll be given a prescription for 10 Lortab 2.5. Diagnosis Primary Impression: Abdominal pain Additional Impressions: colitis versus intestinal mass 21 pound weight loss Tobacco use Additional Instructions: Stop smoking cigarettes. He will receive a call from a nurse for an outpatient referral to see gastroenterology. Return if feeling worse, fevers chills, or any other reason the concerns you. Med/Other Pt SpecificInfo: Prescription(s) given Scripts Hydrocodone/Acetaminophen (Hydrocodone-Acetamin 2.5-325) 2.5 Mg-325 Mg Tablet 1 TAB PO Q6HR for Pain Management, #10 Prov: Les Delacruz MD 04/23/17 Metronidazole (Flagyl) 500 Mg Tab 500 MG PO TID for Infection for 10 Days, TAB 0 Refills Prov: Les Delacruz MD 04/23/17 Ciprofloxacin (Ciprofloxacin) 500 Mg Tab 500 MG PO BID for Infection for 10 Days, #20 TAB 0 Refills Prov: Les Delacruz MD 04/23/17 Disposition: 01 DISCHARGE HOME Condition: Stable Les Delacruz MD Apr 23, 2017 09:37
--- NOTE | 2017-04-23 09:43 | RADRPT ---
EXAM DATE/TIME: 04/23/2017 09:24 [facility] COMPARISON: No previous studies available for comparison. INDICATIONS : Patient complains of abdomen pain for 1 month. Patient is also having indigestion. MEDICAL HISTORY : Hypertension. SURGICAL HISTORY : Hysterectomy. ENCOUNTER: Initial ACUITY: 1 day PAIN SCORE: 10/10 LOCATION: Bilateral Chest. FINDINGS: A single view of the chest demonstrates the lungs to be symmetrically aerated without evidence of mas s, infiltrate or effusion. The cardiomediastinal contours are unremarkable. Osseous structures are intact. CONCLUSION: 1. No acute cardiopulmonary disease. Doroteo Moe MD on April 23, 2017 at 9:41 Board Certified Radiologist. This report was verified electronically.
[2017-04-23 09:49] LABS: AUTOMATED NEUTROPHIL # 4.7 TH/MM3 (1.8-7.7); BASOPHIL # 0.1 TH/MM3 (0-0.2); BASOPHIL % 0.8 % (0.0-2.0); EOSINOPHIL # 0.4 TH/MM3 (0-0.4); EOSINOPHIL % 4.1 % (0.0-4.0); HEMATOCRIT 31.8 % (35.0-46.0); HEMO FLAGS DIFF FINAL; LYMPHOCYTE # 3.2 TH/MM3 (1.0-4.8); MEAN CELL VOLUME 82.7 FL (80.0-100.0); MEAN CORPUSCULAR HEMOGLOBIN 27.5 PG (27.0-34.0); MEAN CORPUSCULAR HGB CONC 33.3 % (32.0-36.0); MONO % 8.6 % (0.0-8.0); NEUT % 51.5 % (16.0-70.0); PLATELET COUNT 322 TH/MM3 (150-450); RED BLOOD COUNT 3.84 MIL/MM3 (4.00-5.30); RED CELL DISTRIBUTION WIDTH 13.4 % (11.6-17.2); WHITE BLOOD COUNT 9.2 TH/MM3 (4.0-11.0)
[2017-04-23 10:21] LABS: ANION GAP 6 MEQ/L (5-15); AST (GOT) 13 U/L (15-37); BICARBONATE 27.3 MEQ/L (21.0-32.0); BLOOD UREA NITROGEN 14 MG/DL (7-18); CHLORIDE 106 MEQ/L (98-107); GLOMERULAR FILTRATION RATE 104 ML/MIN (>89); POTASSIUM 3.9 MEQ/L (3.5-5.1); SODIUM (NA) 139 MEQ/L (136-145)
[2017-04-23 10:22] LABS: ALT (GPT) 14 U/L (10-53)
[2017-04-23 10:24] LABS: ALKALINE PHOSPHATASE 90 U/L (45-117); TOTAL BILIRUBIN ADULT 0.6 MG/DL (0.2-1.0)
[2017-04-23 11:28] LABS: BLOOD, URINE NEG (NEG); COMMENT (UR) CULT NOT INDICATED; CULTURE IF INDICATED CULT NOT INDICATED; GLUCOSE,URINE NEG (NEG); KETONE, URINE NEG (NEG); NITRITE,URINE NEG (NEG); PH, URINE 5.5 (5.0-8.5); SQUAMOUS EPITHELIAL CELL URINE <1 /hpf (0-5); URINE COLOR LIGHT-YELLOW (YELLW/STRAW)
--- NOTE | 2017-04-23 11:40 | RADRPT ---
EXAM DATE/TIME: 04/23/2017 11:10 [facility] COMPARISON: CT ABDOMEN & PELVIS W CONTRAST, September 04, 2016, 18:54. CT ABDOMEN & PELVIS W CONTRAST, March 11 017, 12:15. INDICATIONS : Abdominal pain and constipation for three days. IV CONTRAST: 95 cc Omnipaque 350 (iohexol) IV ORAL CONTRAST: No oral contrast ingested. RADIATION DOSE: 6.64 CTDIvol (mGy) MEDICAL HISTORY : Hypertension. SURGICAL HISTORY : Hysterectomy. ENCOUNTER: Initial ACUITY: 1 day PAIN SCALE: 5/10 LOCATION: general abdomen TECHNIQUE: Volumetric scanning of the abdomen and pelvis was performed. Using automated exposure control and ad justment of the mA and/or kV according to patient size, radiation dose was kept as low as reasonably achievable to obtain optimal diagnostic quality images. DICOM format image data is available electro nically for review and comparison. FINDINGS: LOWER LUNGS: The visualized lower lungs are clear. LIVER: Small subcentimeter hypodense lesions in segment 2 and 4 which are too small to fully characterize bu t statistically reflect a cyst or hemangioma. Otherwise, unremarkable. Gallbladder is grossly unremar kable by CT. SPLEEN: Normal size without lesion. PANCREAS: Within normal limits. KIDNEYS: Normal in size and shape. There is no mass, stone or hydronephrosis. ADRENAL GLANDS: Within normal limits. VASCULAR: There is no aortic aneurysm. BOWEL/MESENTERY: There is a focal region of apparent colonic thickening and subtle pericolonic stranding in the mid de scending colon. Bowel otherwise appears unremarkable without evidence for obstruction. No pneumatosis or free air. No drainable fluid collections. Appendix is visualized and normal in appearance. ABDOMINAL WALL: Within normal limits. RETROPERITONEUM: There is no lymphadenopathy. BLADDER: No wall thickening or mass. REPRODUCTIVE: Within normal limits. INGUINAL: There is no lymphadenopathy or hernia. MUSCULOSKELETAL: Within normal limits for patient age. CONCLUSION: 1. Focal colonic wall thickening and subtle pericolonic stranding in the mid descending colon. Althou gh this is somewhat nonspecific and may reflect peristalsis, colonic mass or focal colitis cannot be entirely excluded. 2. Normal appendix. 3. Remainder of the exam is unchanged from recent CT exams. Doroteo Moe MD on April 23, 2017 at 11:33 Board Certified Radiologist. This report was verified electronically.
[2017-04-23] MEDS ORDERED: CIPR500T2 PO (13:18)
[2017-04-23] MEDS ORDERED: METR-1 PO (13:18)
[2017-04-23 13:21] VITALS: BP 125/60; PULSE 75; RESP 14; O2SAT 98
[2017-04-23] MEDS ORDERED: HYDR-3649 PO (13:23)
--- NOTE | 2017-04-24 17:57 | EKG ---
Date Performed: 04/23/2017 Time Performed: 12:46:31 PTAGE: 62 years EKG: Sinus rhythm NORMAL ECG PREVIOUS TRACING : 09/24/2000 10.27 Compared to prior tracing no significant change DOCTOR: Shabbir Benito Interpretating Date/Time 04/24/2017 17:57:17
== END 2017-04-23 13:54 | disposition home or self-care (01) ==
LOC: NEPE 08:55
DX: R10.9 Unspecified abdominal pain (principal); R63.4 Abnormal weight loss; K59.00 Constipation, unspecified; R53.1 Weakness; I10 Essential (primary) hypertension; K21.9 Gastro-esophageal reflux disease without esophagitis; F17.210 Nicotine dependence, cigarettes, uncomplicated
CPT/HCPCS: 71010; 74177; 80053; 81001; 83605; 83690; 85025; 93005; 96374; 96375; 99285; J2270; J2405; J7030; Q9963

== ENCOUNTER 2017-05-25 09:11 | Emergency (ER) | payer SELFPAY ==
[~2017-05-25] VITALS: Ht 167.6 cm; Wt 47.0 kg
[~2017-05-25 09:11] MED LIST changes: +CIPR500T2 PO; -FAMO1TAB73 PO; +HYDR-3649 PO; -IBUP200T47 PO; +METR-1 PO; -OMEP40CA2 PO; -SUCR1TAB PO
[2017-05-25] MEDS ORDERED: SODIUM CHLOR 0.9% 1000 ML INJ 1,000 ML IV SCH (09:38)
[2017-05-25 09:44] VITALS: BP 128/62; PULSE 80; RESP 17; TEMP 98; O2SAT 100
[2017-05-25] MEDS ORDERED: SODIUM CHLORIDE 0.9% FLUSH 10 ML FLUSH IV FLUSH PRN (09:45)
[2017-05-25] MEDS ORDERED: PANTOPRAZOLE SODIUM 40 MG VIAL IVP ONE (09:45)
[2017-05-25] MEDS ORDERED: ONDANSETRON HCL 4 MG/2 ML VIAL IVP ONE (09:45)
--- NOTE | 2017-05-25 09:45 | PD ---
HPI Chief Complaint: Abdominal Pain Time Seen by Provider: 09:25 Travel History International Travel<30 days: No Contact w/Intl Traveler<30days: No Traveled to known affect area: No History of Present Illness HPI 62-year-old female presents to the emergency department for evaluation of abdominal pain that has been ongoing for many months. This is the patient's sixth visit this year for abdominal pain. She states the same pain she has been having. She states the pain is 9/10, bloated. Patient reports nausea, no vomiting. She reports a mild constipation. Her last bowel movement was this morning. She does report decreased appetite. No fevers or chills. No chest pain or shortness of breath. She reports history of hysterectomy. Patient has had 3 CT scans this year. Patient has not yet followed up with gastroenterology. She states that she has new insurance that will start up after the first of the year. Patient states that during a lot and moving a lot will exacerbate her pain. Rest will alleviate her pain. Moderate severity. PFSH Past Medical History Cardiovascular Problems: Yes Diminished Hearing: No Gastrointestinal Disorders: Yes GERD: Yes Hypertension: Yes (PT STATES DOES NOT TAKE MEDS) Tetanus Vaccination: > 5 Years Influenza Vaccination: Yes ?: Not Menopausal: Yes : 3 Para: 3 Past Surgical History Gynecologic Surgery: Yes (HYSTERECTOMY) Hysterectomy: Yes Social History Alcohol Use: Yes (RARE) Tobacco Use: Yes (2 BLACK&MILDS DAILY ) Substance Use: No Allergies-Medications (Allergen,Severity, Reaction): Coded Allergies: No Known Allergies (Verified Adverse Reaction, Unknown, 05/25/17) Reported Meds & Prescriptions Reported Meds & Active Scripts Active No Active Prescriptions or Reported Medications Review of Systems Except as stated in HPI: all other systems reviewed are Neg Physical Exam Narrative GENERAL: Well-nourished, well-developed female patient, afebrile. SKIN: Focused skin assessment warm/dry. HEAD: Normocephalic. Atraumatic. EYES: No scleral icterus. No injection or drainage. NECK: Supple, trachea midline. No JVD or lymphadenopathy. CARDIOVASCULAR: Regular rate and rhythm without murmurs, gallops, or rubs. RESPIRATORY: Breath sounds equal bilaterally. No accessory muscle use. Lungs sounds are clear to auscultation. GASTROINTESTINAL: Abdomen soft and nondistended. Mild tenderness over left lower quadrant. She states this is her her typical pain is. MUSCULOSKELETAL: No cyanosis, or edema. BACK: Nontender without obvious deformity. No CVA tenderness. Data Data Last Documented VS Vital Signs Date Time Temp Pulse Resp B/P (MAP) Pulse Ox O2 Delivery O2 Flow Rate FiO2 05/25/17 09:44 17 100 Room Air 05/25/17 09:44 98.0 80 Orders Orders Complete Blood Count With Diff (05/25/17 09:38) Comprehensive Metabolic Panel (05/25/17 09:38) Lipase (05/25/17 09:38) Urinalysis - C+S If Indicated (05/25/17 09:38) Iv Access Insert/Monitor (05/25/17 09:38) Ecg Monitoring (05/25/17 09:38) Oximetry (05/25/17 09:38) Ondansetron Inj (Zofran Inj) (05/25/17 09:45) Pantoprazole Inj (Protonix Inj) (05/25/17 09:45) Sodium Chlor 0.9% 1000 Ml Inj (Ns 1000 M (05/25/17 09:38) Sodium Chloride 0.9% Flush (Ns Flush) (05/25/17 09:45) Labs Laboratory Tests Test 05/25/17 09:55 05/25/17 10:50 05/25/17 10:55 White Blood Count 8.1 TH/MM3 Red Blood Count 4.18 MIL/MM3 Hemoglobin 11.5 GM/DL Hematocrit 34.6 % Mean Corpuscular Volume 82.7 FL Mean Corpuscular Hemoglobin 27.5 PG Mean Corpuscular Hemoglobin Concent 33.2 % Red Cell Distribution Width 14.8 % Platelet Count 352 TH/MM3 Mean Platelet Volume 8.2 FL Neutrophils (%) (Auto) 62.6 % Lymphocytes (%) (Auto) 29.2 % Monocytes (%) (Auto) 5.5 % Eosinophils (%) (Auto) 1.9 % Basophils (%) (Auto) 0.8 % Neutrophils # (Auto) 5.1 TH/MM3 Lymphocytes # (Auto) 2.4 TH/MM3 Monocytes # (Auto) 0.5 TH/MM3 Eosinophils # (Auto) 0.2 TH/MM3 Basophils # (Auto) 0.1 TH/MM3 CBC Comment DIFF FINAL Differential Comment Urine Color YELLOW Urine Turbidity CLEAR Urine pH 5.5 Urine Specific [place] 1.018 Urine Protein NEG mg/dL Urine Glucose (UA) NEG mg/dL Urine Ketones TRACE mg/dL Urine Occult Blood NEG Urine Nitrite NEG Urine Bilirubin NEG Urine Urobilinogen LESS THAN 2.0 MG/DL Urine Leukocyte Esterase NEG Urine RBC 3 /hpf Urine WBC 1 /hpf Urine Squamous Epithelial Cells <1 /hpf Urine Mucus FEW /lpf Microscopic Urinalysis Comment CULT NOT INDICATED Blood Urea Nitrogen 12 MG/DL Creatinine 0.54 MG/DL Random Glucose 73 MG/DL Total Protein 8.2 GM/DL Albumin 3.1 GM/DL Calcium Level 8.9 MG/DL Alkaline Phosphatase 89 U/L Aspartate Amino Transf (AST/SGOT) 14 U/L Alanine Aminotransferase (ALT/SGPT) 14 U/L Total Bilirubin 0.7 MG/DL Sodium Level 141 MEQ/L Potassium Level 4.6 MEQ/L Chloride Level 109 MEQ/L Carbon Dioxide Level 27.5 MEQ/L Anion Gap 5 MEQ/L Estimat Glomerular Filtration Rate 138 ML/MIN Lipase 59 U/L [facility] Medical Decision Making Medical Screen Exam Complete: Yes Emergency Medical Condition: Yes Medical Record Reviewed: Yes Differential Diagnosis Gastritis versus chronic abdominal pain versus UTI versus dehydration versus electrolyte abnormality versus pyelonephritis Narrative Course 62-year-old female presents to the emergency department for evaluation of abdominal pain that is ongoing for several months. This is the patient's sixth visit this year for abdominal pain. CBC, CMP, lipase, UA are ordered and pending. Patient is given normal saline 1 L IV bolus, Zofran 4 mg IV, Protonix 40 mg IV. CBC shows no acute abnormality. CMP shows no acute abnormality. Lipase is 59. UA is negative. Upon reexamination, patient states she is passing gas which is making her feel much better. Patient stable for discharge. She is instructed to follow-up with gastroenterology. I'll give her the name and number of our hub lead on-call. She verbalizes agreement and understanding. The patient was discharged in stable condition with instructions, including return instructions and follow up instructions. Diagnosis Primary Impression: Chronic abdominal pain Referrals: Yuri Romero MD call for appointment Patient Instructions: Gastritis (ED), General Instructions Additional Instructions: Follow-up with hub lead. Return to the emergency department for any acute worsening of symptoms. Scripts No Active Prescriptions or Reported Meds Disposition: 01 DISCHARGE HOME Condition: Stable Lauryn Green May 25, 2017 09:45
[2017-05-25 10:09] LABS: AUTOMATED NEUTROPHIL # 5.1 TH/MM3 (1.8-7.7); BASOPHIL # 0.1 TH/MM3 (0-0.2); BASOPHIL % 0.8 % (0.0-2.0); EOSINOPHIL # 0.2 TH/MM3 (0-0.4); EOSINOPHIL % 1.9 % (0.0-4.0); HEMATOCRIT 34.6 % (35.0-46.0); HEMOGLOBIN 11.5 GM/DL (11.6-15.3); LYMPH % 29.2 % (9.0-44.0); LYMPHOCYTE # 2.4 TH/MM3 (1.0-4.8); MEAN CELL VOLUME 82.7 FL (80.0-100.0); MEAN CORPUSCULAR HEMOGLOBIN 27.5 PG (27.0-34.0); MEAN CORPUSCULAR HGB CONC 33.2 % (32.0-36.0); MEAN PLATELET VOLUME 8.2 FL (7.0-11.0); MONO % 5.5 % (0.0-8.0); MONOCYTE # 0.5 TH/MM3 (0-0.9); NEUT % 62.6 % (16.0-70.0); PLATELET COUNT 352 TH/MM3 (150-450); RED BLOOD COUNT 4.18 MIL/MM3 (4.00-5.30); RED CELL DISTRIBUTION WIDTH 14.8 % (11.6-17.2); WHITE BLOOD COUNT 8.1 TH/MM3 (4.0-11.0)
[2017-05-25 10:36] LABS: ALT (GPT) 14 U/L (10-53)
[2017-05-25 10:38] LABS: ALKALINE PHOSPHATASE 89 U/L (45-117); TOTAL BILIRUBIN ADULT 0.7 MG/DL (0.2-1.0); TOTAL PROTEIN 8.2 GM/DL (6.4-8.2)
[2017-05-25 11:24] LABS: BILIRUBIN, URINE NEG (NEG); BLOOD, URINE NEG (NEG); GLUCOSE,URINE NEG (NEG); KETONE, URINE TRACE mg/dL (NEG); MUCUS URINE FEW /lpf (OCC); NITRITE,URINE NEG (NEG); PH, URINE 5.5 (5.0-8.5); SQUAMOUS EPITHELIAL CELL URINE <1 /hpf (0-5); URINE COLOR YELLOW (YELLW/STRAW); URINE LEUKOCYTE ESTERASE NEG (NEG)
[2017-05-25 11:31] LABS: ALBUMIN 3.1 GM/DL (3.4-5.0); AST (GOT) 14 U/L (15-37); CALCIUM 8.9 MG/DL (8.5-10.1)
[2017-05-25 11:32] LABS: BICARBONATE 27.5 MEQ/L (21.0-32.0); CHLORIDE 109 MEQ/L (98-107); LIPASE 59 U/L (73-393); SODIUM (NA) 141 MEQ/L (136-145)
[2017-05-25 11:33] LABS: BLOOD UREA NITROGEN 12 MG/DL (7-18); CREATININE 0.54 MG/DL (0.50-1.00); GLOMERULAR FILTRATION RATE 138 ML/MIN (>89); GLUCOSE,RANDOM 73 MG/DL (74-106)
[2017-05-25 12:06] VITALS: BP 124/78; TEMP 97.8
== END 2017-05-25 12:07 | disposition home or self-care (01) ==
LOC: NEPD 09:11
DX: R10.9 Unspecified abdominal pain (principal); G89.29 Other chronic pain; Z72.0 Tobacco use
CPT/HCPCS: 80053; 81001; 83690; 85025; 96361; 96374; 96375; 99284; C9113; J2405; J7030

== ENCOUNTER 2017-07-08 05:20 | Inpatient (IN) | payer OTHER ==
[~2017-07-08] VITALS: Ht 165.1 cm; Wt 53.1 kg
[2017-07-08] MEDS ORDERED: ceFAZolin 1,000 MG/NS 100 ML IV SCH ×2 (06:00)
[2017-07-08] MEDS ORDERED: LACTATED RINGER'S 1000 ML IV PRN (06:00)
[2017-07-08] MEDS ORDERED: CHLORHEXIDINE GLUCONATE 2 % 1 PACK (2 CLOTHS) TOPICAL PRN (06:00)
[2017-07-08] MEDS ORDERED: METOPROLOL TARTRATE 25 MG TAB PO PRN (06:00)
[2017-07-08] MEDS ORDERED: ALVIMOPAN 12 MG CAPSULE - On Call PO SCH (06:00)
[2017-07-08] MEDS ORDERED: POVIDONE IODINE 5% (ANTISEPSIS KIT) 4 APPLICATIONS EACH NARE PRN (06:00)
[2017-07-08] MEDS ORDERED: metroNIDAZOLE 500 MG INJ 100 ML IV ONE (06:42)
[2017-07-08] MEDS ORDERED: ceFAZolin 2 GM PREMIX 50 ML ONE (06:42)
[2017-07-08] MEDS ORDERED: ACETAMINOPHEN 1000 MG/100 ML 100 ML IV SCH (06:45)
[2017-07-08] MEDS ORDERED: metroNIDAZOLE 500 MG INJ 100 ML IV SCH (06:45)
[2017-07-08] MEDS ORDERED: SODIUM CHLORIDE 0.9% 20 ML VIAL ONE (06:58)
[2017-07-08] MEDS ORDERED: BUPIVACAINE LIPOSOME PF 1.3% 20 ML VIAL ONE ×2 (06:59→08:15)
[2017-07-08] MEDS ORDERED: BUPIVACAINE/EPINEPHRINE 0.25% 50 ML VIAL ONE (07:29)
[2017-07-08] MEDS ORDERED: MIDAZOLAM HCL 2 MG/2 ML VIAL ONE (08:14)
[2017-07-08] MEDS ORDERED: LIDOCAINE HCL 1% 20 ML VIAL ONE (08:15)
[2017-07-08] MEDS ORDERED: GLYCOPYRROLATE 1 MG/5 ML SYRINGE IV PUSH ONE (12:00)
[2017-07-08] MEDS ORDERED: PHENYLEPH/NS 1000 MCG/10 ML SYR IV ONE (12:00)
[2017-07-08] MEDS ORDERED: DEXAMETHASONE SOD PHOS 4 MG/ML VIAL IV ONE (12:00)
[2017-07-08] MEDS ORDERED: LIDOCAINE HCL 1% PF 5 ML SYRINGE OTHER ONE (12:00)
[2017-07-08] MEDS ORDERED: PROPOFOL 200 MG/20 ML AMP IV ONE (12:00)
[2017-07-08] MEDS ORDERED: ROCURONIUM INJ 50 MG/5 ML SYRINGE IV PUSH ONE (12:00)
[2017-07-08] MEDS ORDERED: ONDANSETRON HCL 4 MG/2 ML VIAL IV PUSH ONE (12:00)
[2017-07-08] MEDS ORDERED: LACTATED RINGER'S 1000 ML INJ 1,000 ML IV ONE (12:00)
[2017-07-08] MEDS ORDERED: SODIUM CHLOR 0.9% 1000 ML INJ 2,000 ML IV ONE (12:00)
[2017-07-08] MEDS ORDERED: PHENYLEPHRINE HCL 10 MG/ML VIAL IV ONE (12:00)
[2017-07-08] MEDS ORDERED: SODIUM CHLOR 0.9% 250 ML INJ 250 ML IV ONE (12:00)
[2017-07-08] MEDS ORDERED: NEOSTIGMINE 5 MG/5 ML SYRINGE IV PUSH ONE (12:00)
[2017-07-08] MEDS ORDERED: diphenhydrAMINE HCL 50 MG/ML VIAL IV PUSH PRN (12:30)
[2017-07-08] MEDS ORDERED: HYDROmorphone HCL PCA 6 MG/30 ML IV SCH (12:30)
[2017-07-08] MEDS ORDERED: ZOLPIDEM TARTRATE 5 MG TAB PO PRN (12:30)
[2017-07-08] MEDS ORDERED: SODIUM CHLORIDE 0.9% FLUSH 10 ML FLUSH IV FLUSH PRN (12:30)
[2017-07-08] MEDS ORDERED: NALOXONE HCL 0.4 MG/ML AMP IV PUSH PRN ×2 (12:30)
[2017-07-08] MEDS ORDERED: Post-op Orders (for Pharmacy) XX ONE (12:30)
[2017-07-08] MEDS ORDERED: ONDANSETRON HCL 4 MG/2 ML VIAL IV PUSH PRN (12:30)
[2017-07-08] MEDS ORDERED: DO NOT ADM ANY ANTICOAGULANT DRUGS PRN (12:32)
[2017-07-08] MEDS: LACTATED RINGER'S 1000 ML INJ 1,000 ML IV SCH ×2 (12:54→22:19)
[2017-07-08] MEDS: PCA - TOTAL MG DILAUDID DELIVERED PER SHIFT OTHER SCH ×2 (14:00→22:00)
[2017-07-08] MEDS ORDERED: PANTOPRAZOLE SODIUM 40 MG VIAL IV PUSH SCH (14:00)
[2017-07-08] MEDS: ACETAMINOPHEN 1000 MG/100 ML 100 ML IV SCH ×2 (14:35→19:33)
[2017-07-08] MEDS: KETOROLAC TROMETHAMINE 30 MG/ML (IVP) VIAL IV PUSH SCH ×2 (14:35→19:42)
[2017-07-08 14:52] VITALS: BP 130/69; PULSE 88; RESP 18; TEMP 97.8; O2SAT 100
[2017-07-08 20:00] VITALS: BP 99/48; PULSE 62; RESP 20; TEMP 97.6; O2SAT 100
[2017-07-08] MEDS: SODIUM CHLORIDE 0.9% FLUSH 10 ML FLUSH IV FLUSH SCH (21:00)
[2017-07-09] VITALS: BP 96/58; PULSE 55; RESP 18; TEMP 98.1; O2SAT 100
[2017-07-09] MEDS: KETOROLAC TROMETHAMINE 30 MG/ML (IVP) VIAL IV PUSH SCH ×5 (01:20→23:33)
[2017-07-09] MEDS: ACETAMINOPHEN 1000 MG/100 ML 100 ML IV SCH ×2 (02:13→06:51)
[2017-07-09 04:00] VITALS: BP 98/53; PULSE 88; RESP 18; TEMP 97.3; O2SAT 100
[2017-07-09] MEDS: PCA - TOTAL MG DILAUDID DELIVERED PER SHIFT OTHER SCH (05:14)
[2017-07-09 05:47] LABS: BICARBONATE 30.2 MEQ/L (21.0-32.0); CREATININE 0.65 MG/DL (0.50-1.00)
[2017-07-09] MEDS: SODIUM CHLORIDE 0.9% FLUSH 10 ML FLUSH IV FLUSH SCH ×2 (07:22→20:54)
[2017-07-09 08:00] VITALS: BP 99/54; PULSE 57; RESP 16; TEMP 98.7; O2SAT 100
[2017-07-09] MEDS: ALVIMOPAN 12 MG CAPSULE - Post-op dosing PO SCH ×2 (09:20→20:54)
[2017-07-09] MEDS: LACTATED RINGER'S 1000 ML INJ 1,000 ML IV SCH ×2 (09:38→20:55)
--- NOTE | 2017-07-09 11:25 | HHI.PR ---
Subjective Subjective Notes She feels hungry. Denies nausea. Pain well controlled and she forgets to use the adolescent counselor. Objective Vitals/I&O Vital Signs Date Time Temp Pulse Resp B/P (MAP) Pulse Ox O2 Delivery O2 Flow Rate FiO2 07/09/17 08:00 98.7 57 16 99/54 (69) 100 07/08/17 14:30 Nasal Cannula 2 Labs Laboratory Tests Test 07/09/17 05:01 Blood Urea Nitrogen 11 Creatinine 0.65 Random Glucose 115 Calcium Level 8.0 Sodium Level 137 Potassium Level 4.5 Chloride Level 103 Carbon Dioxide Level 30.2 Anion Gap 4 Estimat Glomerular Filtration Rate 112 Narrative Exam NAD Abd: mild distention, bandages in place Ahmadi with clear urine A/P Assessment and Plan POD 1 s/p lap assisted left colectomy for cancer of descending colon. Doing well post op. Feels hungry and some flatus. D/c ahmadi. Fulls. 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 DVT proph: Spenser Lacy MD Jul 09, 2017 11:25
[2017-07-09] MEDS ORDERED: oxyCODONE/ACETAMINOPHEN 5 MG/325 MG TAB PO PRN (11:30)
[2017-07-09] MEDS ORDERED: MORPHINE SULFATE 2 MG/ML INJ IV PUSH PRN (11:30)
[2017-07-09 12:00] VITALS: BP 99/51; PULSE 76; RESP 18; TEMP 99.3; O2SAT 100
[2017-07-09] MEDS: ENOXAPARIN SODIUM 40 MG/0.4 ML SYRINGE SQ SCH (12:27)
[2017-07-09] MEDS: oxyCODONE/ACETAMINOPHEN 5 MG/325 MG TAB PO PRN ×2 (15:34→20:55)
[2017-07-09 16:00] VITALS: BP 100/58; PULSE 73; RESP 16; TEMP 98.5; O2SAT 98
[2017-07-09 20:00] VITALS: BP 90/52; PULSE 68; RESP 20; TEMP 97.7; O2SAT 98
[2017-07-10] VITALS: BP 97/53; PULSE 65; RESP 20; TEMP 97; O2SAT 95
[2017-07-10 04:00] VITALS: BP 128/58; PULSE 65; RESP 20; TEMP 97.3; O2SAT 98
[2017-07-10] MEDS: KETOROLAC TROMETHAMINE 30 MG/ML (IVP) VIAL IV PUSH SCH ×3 (05:26→19:38)
[2017-07-10] MEDS: LACTATED RINGER'S 1000 ML INJ 1,000 ML IV SCH (05:26)
[2017-07-10 08:00] VITALS: BP 111/55; PULSE 82; RESP 16; TEMP 98.6; O2SAT 96
[2017-07-10] MEDS: SODIUM CHLORIDE 0.9% FLUSH 10 ML FLUSH IV FLUSH SCH ×2 (09:00→22:14)
[2017-07-10] MEDS: PANTOPRAZOLE SOD 40 MG DELAYED RELEASE TAB PO SCH (09:02)
[2017-07-10] MEDS: ALVIMOPAN 12 MG CAPSULE - Post-op dosing PO SCH ×2 (09:02→22:13)
[2017-07-10] MEDS: ENOXAPARIN SODIUM 40 MG/0.4 ML SYRINGE SQ SCH (11:58)
[2017-07-10 12:00] VITALS: BP 122/58; PULSE 81; RESP 17; TEMP 99.6; O2SAT 98
--- NOTE | 2017-07-10 13:22 | HHI.PR ---
Subjective Subjective Notes pt comfortable pos flatus Objective Vitals/I&O Vital Signs Date Time Temp Pulse Resp B/P (MAP) Pulse Ox O2 Delivery O2 Flow Rate FiO2 07/10/17 12:00 99.6 81 17 122/58 (79) 98 07/08/17 14:30 Nasal Cannula 2 Abdomen: Post-op tenderness Extremities: Perfused Wound Wound : Wound Location: Abdomen Appearance: Clean & Dry A/P Assessment and Plan s/p lap assisted left colectomy POD # 2 doing well ambulate in [facility] reg diet in Keven Jacques MD Jul 10, 2017 13:22
[2017-07-10 16:00] VITALS: BP 100/59; PULSE 79; RESP 17; TEMP 99; O2SAT 97
[2017-07-10 20:00] VITALS: BP 107/59; PULSE 78; RESP 18; TEMP 98.1; O2SAT 97
[2017-07-11] VITALS: BP 109/58; PULSE 70; RESP 16; TEMP 97.3; O2SAT 98
[2017-07-11] MEDS: KETOROLAC TROMETHAMINE 30 MG/ML (IVP) VIAL IV PUSH SCH ×4 (01:15→18:33)
[2017-07-11 08:00] VITALS: BP 122/59; PULSE 81; RESP 16; TEMP 97.8; O2SAT 97
[2017-07-11] MEDS: SODIUM CHLORIDE 0.9% FLUSH 10 ML FLUSH IV FLUSH SCH ×2 (08:11→20:36)
[2017-07-11] MEDS: PANTOPRAZOLE SOD 40 MG DELAYED RELEASE TAB PO SCH (08:11)
[2017-07-11] MEDS: ALVIMOPAN 12 MG CAPSULE - Post-op dosing PO SCH ×2 (08:11→20:36)
--- NOTE | 2017-07-11 09:54 | MP ---
cc: MIKE MANCIA MD DATE OF SURGERY: 07/08/2017 PREOPERATIVE DIAGNOSIS: Adenocarcinoma of the descending colon. POSTOPERATIVE DIAGNOSIS: Adenocarcinoma of the descending colon. PROCEDURE Laparoscopic-assisted left colectomy. SURGEON Mike Mancia MD. PRINTER HELPER: DASH Pugh. ANESTHESIA: General endotracheal anesthesia ESTIMATED BLOOD LOSS 50 cc SPECIMEN Left colon with tumor. INDICATIONS The patient is a 62-year-old female who underwent colonoscopy and was found to have large friable and ulcerated mass in the descending colon. Biopsies obtained showed adenocarcinoma. CEA level was normal. CT of the chest, abdomen and pelvis showed no distant metastatic disease. She did have thickening of the colon proximal and distal mass with some mesenteric edema and enlarged mesenteric lymph nodes. OPERATIVE FINDINGS The patient had a large mass in the descending colon with some colonic and mesenteric edema especially just distal to the mass. The mass was partially adherent to the retroperitoneum and to Gerota's fascia without any apparent invasion. PROCEDURE IN DETAIL The patient was taken to the operating room, placed in supine position. General endotracheal anesthesia was induced and the abdomen was prepped and draped in the usual sterile fashion. A surgical time-out was performed to verify correct patient, procedure and site. Appropriate preoperative antibiotics were administered. In the right lower abdomen a 5 mm incision was made and the abdomen entered with the OptiVu trocar under direct laparoscopic visualization. The abdomen was insufflated to 15 mmHg with CO2 gas with which the patient tolerated well. Three more 5 mm ports were placed, one in the right lower abdomen, the right upper abdomen and in the left mid abdomen, all under direct laparoscopic visualization. The mass was readily apparent in approximately the mid descending colon and was fairly large. I proceeded with division of the gastrocolic omentum from the mid transverse colon to the splenic flexure. Next the lateral descending colon was mobilized at the white line of Toldt and the splenic flexure was fully mobilized. This was all performed using the harmonic scalpel. There was edema of the colon and the mesentery in the distal descending colon just distal to the mass. For further mobilization some attachments of the sigmoid colon were carefully taken down. The specimen was elevated towards the abdominal wall and the mesentery visualized. At this point the colon was well mobilized and laparoscopic insufflation was relieved. A midline incision superior and inferior to the umbilicus was created carried down through subcutaneous tissue and fascia using electrocautery. The splenic flexure had been taken down laparoscopically, however, the tumor was somewhat adherent to the retroperitoneum as well as to Gerota's fascia. The patient was quite thin and the tumor was carefully elevated off the retroperitoneal structures. The gonadal vein and the ureter were seen up in the mid abdomen entering the kidney and carefully avoided. After the tumor was completely mobilized the anterior mesenteric vein was ligated and tied with zero silk suture. The left branch of the middle colic artery was ligated with silk suture and transected. The distal transverse colon was divided with the 75 mm CHAD blue load stapler. Distally at the junction of the descending and sigmoid colon, the colon was again divided with the CHAD 75 millimeter blue load stapler. The left colic artery was ligated and divided at its origin and a portion of the sigmoidal vessels were divided as well. The specimen was then removed and sent for permanent pathology. A [id number] functional end-to-end anastomosis was performed between the distal transverse colon and the descending sigmoid junction. The anastomosis was performed with CHAD 75 millimeter blue load stapler. There was no tension, hematoma or bleeding from the staple line. The end enterotomy was closed with TX60 blue load, 3-0 silk suture was placed in the crotch of the staple line. The mesenteric defect was closed with running 3-0 silk suture taking care to leave ample room for the duodenum at the ligament of Treitz. The abdomen was irrigated with warm normal saline. There was some mild oozing from the retroperitoneum and Surgicel powder was placed. There was a small branch of the left gonadal vein which was bleeding and this required ligature with [id number] 3-0 silk suture. At this point there was adequate hemostasis. Irrigation was performed once more and the fascia was then closed with running #1 PDS suture. Incision was irrigated and skin was closed with wide skin stapler. All sponge and instrument counts were correct. The patient tolerated the procedure well, was extubated and taken to PACU in stable condition. MD SKY Bearden/DRAKE /8:46 AM /9:33 AM
[2017-07-11 12:00] VITALS: BP 124/59; PULSE 78; RESP 18; TEMP 98.2; O2SAT 97
--- NOTE | 2017-07-11 12:13 | HHI.PR ---
Subjective Subjective Notes pt without complaints no N/V pos flatus no BM Objective Vitals/I&O Vital Signs Date Time Temp Pulse Resp B/P (MAP) Pulse Ox O2 Delivery O2 Flow Rate FiO2 07/11/17 08:00 97.8 81 16 122/59 (80) 97 07/08/17 14:30 Nasal Cannula 2 Abdomen: Post-op tenderness Extremities: Perfused Wound Wound : Wound Location: Abdomen Appearance: Clean & Dry A/P Assessment and Plan s/p lap assisted left colectomy POD # 3 doing well ambulate in [facility] reg diet pos d/c eKven Jacques MD Jul 11, 2017 12:13
[2017-07-11] MEDS: ENOXAPARIN SODIUM 40 MG/0.4 ML SYRINGE SQ SCH (13:16)
[2017-07-11 16:00] VITALS: BP 115/61; PULSE 66; RESP 16; TEMP 99.6; O2SAT 97
[2017-07-11] MEDS: LACTATED RINGER'S 1000 ML INJ 1,000 ML IV SCH (19:00)
[2017-07-11] MEDS: DOCUSATE SODIUM 100 MG CAP PO SCH (20:36)
[2017-07-11 20:52] VITALS: BP 118/62; PULSE 72; RESP 20; TEMP 98.5; O2SAT 97
[2017-07-12] VITALS: BP 123/61; PULSE 68; RESP 20; TEMP 98.2; O2SAT 97
[2017-07-12] MEDS: KETOROLAC TROMETHAMINE 30 MG/ML (IVP) VIAL IV PUSH SCH ×2 (00:21→06:34)
[2017-07-12 08:00] VITALS: BP 124/60; PULSE 64; RESP 18; TEMP 98.1; O2SAT 98
[2017-07-12] MEDS: SODIUM CHLORIDE 0.9% FLUSH 10 ML FLUSH IV FLUSH SCH (09:00)
[2017-07-12] MEDS: ALVIMOPAN 12 MG CAPSULE - Post-op dosing PO SCH (09:14)
[2017-07-12] MEDS: PANTOPRAZOLE SOD 40 MG DELAYED RELEASE TAB PO SCH (09:14)
[2017-07-12] MEDS: oxyCODONE/ACETAMINOPHEN 5 MG/325 MG TAB PO PRN (09:14)
[2017-07-12] MEDS: DOCUSATE SODIUM 100 MG CAP PO SCH (09:14)
[2017-07-12] MEDS ORDERED: OXYC1TAB63 PO (11:11)
--- NOTE | 2017-07-12 11:13 | HHI.DS ---
Discharge Summary Admission Date Jul 08, 2017 at 05:20 Discharge Date: Jul 12, 2017 Admitting Diagnosis Colon cancer Procedures Lap assisted left colectomy Brief History 62 yo F presents for elective left colectomy for descending colon adenocarcinoma. 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 She gradually advanced diet with flatus and then bowel movt prior to dc. No post op issues. Pt Condition on Discharge: Good Discharge Disposition: Discharge Home Discharge Instructions DIET: Follow Instructions for: As Tolerated, No Restrictions Activities you can perform: See Additionl Instruction Other Activity Instructions: Ok to shower. NO driving while on narcotics. Avoid heavy lifting. Follow up Referrals: Surgical - 10 Days with Spenser Perez MD New Medications: Oxycodone-Acetaminophen (Oxycodone-Acetaminophen) 5-325 mg Tab 1-2 TAB PO Q4H PRN for PAIN, #30 TAB 0 Refills Spenser Perez MD Jul 12, 2017 11:13
[2017-07-12] MEDS: ENOXAPARIN SODIUM 40 MG/0.4 ML SYRINGE SQ SCH (11:30)
== END 2017-07-12 12:35 | disposition home or self-care (01) | DRG 331 ==
LOC: HSDI 05:20 → N07B 14:48
PROVIDERS: ADMIT Surgery; ATTEND Surgery
PROC: 0DT Gastrointestinal System, Resection (ICD-10-PCS; principal; 2017-07-08 08:42)
DX: C18.6 Malignant neoplasm of descending colon (principal); K21.9 Gastro-esophageal reflux disease without esophagitis; R59.0 Localized enlarged lymph nodes; Z87.891 Personal history of nicotine dependence
CPT/HCPCS: 80048; 86850; 86900; 86901; 88309; 94150; C9113; C9290; J0131; J0690; J1100; J1170; J1650; J1885; J2250; J2270; J2370; J2405; J2710; J3010; J7030; J7050; J7120

== ENCOUNTER 2017-07-26 16:07 | Emergency (ER) | payer OTHER ==
[~2017-07-26 16:07] MED LIST changes: -CIPR500T2 PO; -HYDR-3649 PO; -METR-1 PO; +OXYC1TAB63 PO
[2017-07-26 16:15] VITALS: BP 151/81; PULSE 98; RESP 20; TEMP 98.6; O2SAT 100
[2017-07-26] MEDS ORDERED: LIDOCAINE VISCOUS 2% SOLN 15 ML UDC PO ONE (16:45)
[2017-07-26] MEDS ORDERED: ALUMINUM/MAGNESIUM/SIMETH 30 ML CUP PO ONE (16:45)
--- NOTE | 2017-07-26 17:18 | PD ---
HPI Chief Complaint: Abdominal Pain Time Seen by Provider: 16:34 Travel History International Travel<30 days: No Contact w/Intl Traveler<30days: No Traveled to known affect area: No History of Present Illness HPI 62-year-old female with PMH of recent laparoscopically assisted colectomy presents to the ED for evaluation of 1010 epigastric pain. She states the pain is "gassy" in nature. It is constant with no alleviating or exacerbating factors reported. Onset after she ate mustard greens. Patient states that prior to this she was feeling well. She denies fever, chills, nausea, vomiting , changes in bowel habits, melena, hematochezia. She states that she recently saw her surgeon and was told that she could go back to "normal diet." PFSH Past Medical History Autoimmune Disease: No Cancer: Yes (Colon cancer) Cardiovascular Problems: No Chemotherapy: No Diabetes: No Diminished Hearing: No Endocrine: No Gastrointestinal Disorders: Yes GERD: Yes Genitourinary: No Hepatitis: No Hiatal Hernia: No Hypertension: Yes Immune Disorder: No Musculoskeletal: No Neurologic: No Psychiatric: No Reproductive: Yes (Hysterectomy) Respiratory: No Radiation Therapy: No Sickle Cell Disease: No Thyroid Disease: No Ulcer: No Menopausal: Yes : 3 Para: 3 Past Surgical History Abdominal Surgery: No AICD: No Arteriovenous Shunt: No Cardiac Surgery: No Ear Surgery: No Endocrine Surgery: No Eye Surgery: No Genitourinary Surgery: No Gynecologic Surgery: Yes (Hysterectomy) Hysterectomy: Yes Insulin Pump: No Joint Replacement: No Oral Surgery: No Pacemaker: No Thoracic Surgery: No Other Surgery: Yes Social History Alcohol Use: Yes (RARE) Tobacco Use: Yes (2 BLACK&MILDS DAILY ) Substance Use: No Allergies-Medications (Allergen,Severity, Reaction): Coded Allergies: No Known Allergies (Verified Adverse Reaction, Unknown, 07/26/17) Reported Meds & Prescriptions Reported Meds & Active Scripts Active Oxycodone-Acetaminophen 5-325 mg Tab 1-2 Tab PO Q4H PRN Review of Systems Except as stated in HPI: all other systems reviewed are Neg Physical Exam Narrative GENERAL: Well-nourished, well-developed thin female, hand in the epigastric region, bent over. SKIN: Focused skin assessment warm/dry. Well healing abdominal incisions without signs of infection. HEAD: Normocephalic. EYES: No scleral icterus. No injection or drainage. NECK: Supple, trachea midline. No JVD or lymphadenopathy. CARDIOVASCULAR: Regular rate and rhythm without murmurs, gallops, or rubs. RESPIRATORY: Breath sounds equal bilaterally. No accessory muscle use. GASTROINTESTINAL: Abdomen soft, nondistended. Tender in the epigastric region. Active bowel sounds. MUSCULOSKELETAL: No cyanosis, or edema. BACK: Nontender without obvious deformity. No CVA tenderness. Data Data Last Documented VS Vital Signs Date Time Temp Pulse Resp B/P (MAP) Pulse Ox O2 Delivery O2 Flow Rate FiO2 07/26/17 18:42 18 07/26/17 18:22 98 Room Air 07/26/17 18:22 88 157/69 (98) 07/26/17 16:15 98.6 Orders Orders Complete Blood Count With Diff (07/26/17 16:17) Comprehensive Metabolic Panel (07/26/17 16:17) Lipase (07/26/17 16:17) Prothrombin Time / Inr (Pt) (07/26/17 16:17) Act Partial Throm Time (Ptt) (07/26/17 16:17) Electrocardiogram (07/26/17 16:17) Ckmb (Isoenzyme) Profile (07/26/17 16:17) Troponin I (07/26/17 16:17) Iv Access Insert/Monitor (07/26/17 16:43) Ecg Monitoring (07/26/17 16:43) Oximetry (07/26/17 16:43) Al-Mag Hy-Si 40-40-4 Mg/Ml Liq (Mag-Al P (07/26/17 16:45) Lidocaine 2% Viscous (Xylocaine 2% Visco (07/26/17 16:45) Ct Abd/Pel W Iv Contrast(Rout) (07/26/17 ) Morphine Inj (Morphine Inj) (07/26/17 18:15) Ondansetron Inj (Zofran Inj) (07/26/17 18:15) Iohexol 350 Inj (Omnipaque 350 Inj) (07/26/17 19:27) Ed Discharge Order (07/26/17 20:34) Labs Laboratory Tests Test 07/26/17 16:53 White Blood Count 8.8 TH/MM3 Red Blood Count 3.92 MIL/MM3 Hemoglobin 10.8 GM/DL Hematocrit 32.4 % Mean Corpuscular Volume 82.7 FL Mean Corpuscular Hemoglobin 27.5 PG Mean Corpuscular Hemoglobin Concent 33.2 % Red Cell Distribution Width 15.5 % Platelet Count 430 TH/MM3 Mean Platelet Volume 7.8 FL Neutrophils (%) (Auto) 48.4 % Lymphocytes (%) (Auto) 44.2 % Monocytes (%) (Auto) 4.8 % Eosinophils (%) (Auto) 1.9 % Basophils (%) (Auto) 0.7 % Neutrophils # (Auto) 4.2 TH/MM3 Lymphocytes # (Auto) 3.9 TH/MM3 Monocytes # (Auto) 0.4 TH/MM3 Eosinophils # (Auto) 0.2 TH/MM3 Basophils # (Auto) 0.1 TH/MM3 CBC Comment DIFF FINAL Differential Comment Prothrombin Time 10.1 SEC Prothromb Time International Ratio 1.0 RATIO Activated Partial Thromboplast Time 26.4 SEC Blood Urea Nitrogen 17 MG/DL Creatinine 0.87 MG/DL Random Glucose 93 MG/DL Total Protein 8.7 GM/DL Albumin 4.3 GM/DL Calcium Level 9.8 MG/DL Alkaline Phosphatase 103 U/L Aspartate Amino Transf (AST/SGOT) 19 U/L Alanine Aminotransferase (ALT/SGPT) 21 U/L Total Bilirubin 0.3 MG/DL Sodium Level 138 MEQ/L Potassium Level 3.8 MEQ/L Chloride Level 101 MEQ/L Carbon Dioxide Level 30.7 MEQ/L Anion Gap 6 MEQ/L Estimat Glomerular Filtration Rate 80 ML/MIN Total Creatine Kinase 58 U/L Troponin I LESS THAN 0.02 NG/ML Lipase 95 U/L MDM Medical Decision Making Medical Screen Exam Complete: Yes Emergency Medical Condition: Yes Differential Diagnosis gastritis versus bowel obstruction versus postoperative complication versus other Narrative Course 62-year-old female with PMH of recent laparoscopically assisted colectomy presents to the ED for evaluation of 10/10 epigastric pain. She states the pain is "gassy" in nature. Onset after she ate mustard greens. Patient states that prior to this she was feeling well. She denies fever, chills, nausea, vomiting, changes in bowel habits, melena, hematochezia. She states that she recently saw her surgeon and was told that she could go back to "normal diet." The patient's afebrile, hypertensive on presentation. On physical exam she has tenderness to palpation in the epigastric region but the exam is otherwise unremarkable. IV was established. Patient was administered a GI cocktail, 4 mg morphine and 4 mg Zofran. EKG rate 83, sinus rhythm. TN interval 165, QRS 86, QTC 404 ms. Normal axis. No acute ST changes. Reviewed by Dr. Delacruz. Cardiac enzymes negative 1. CT abdomen and pelvis: Postoperative partial left colonic resection with some mildly thickened loops of bowel near surgical yogi. There is fat stranding or edema within the mesentery. No definite bowel obstruction. Mild gastric distention. No free air. Solid visceral are unremarkable per radiology read. 07/26/17 16:53 Total Protein 8.7 H, Albumin 4.3, Calcium Level 9.8, Alkaline Phosphatase 103, Aspartate Amino Transf (AST/SGOT) 19, Alanine Aminotransferase (ALT/SGPT) 21, Total Bilirubin 0.3 INR 1.0. I discussed the results of the workup with Dr. Mcwilliams, on-call for Dr. Perez. He feels that the patient is safe for discharge. I discussed the results of the workup with the patient. She states that her symptoms have improved. She was relieved by the negative workup. She requests dietary guidance and was provided this on her discharge instructions. She is instructed to follow up with Dr. Perez. She is stable and discharged home. Diagnosis Primary Impression: Epigastric abdominal pain Referrals: Spenser Perez MD Patient Instructions: Abdominal Hysterectomy (DC), Diet for Stomach Ulcers and Gastritis (ED), General Instructions Additional Instructions: Rest, hydrate. Eat a bland diet for the next few days and gradually reintroduce new foods. Follow-up with Dr. Perez this week. Return to the ED for worsening symptoms or any urgent or emergent medical condition. Disposition: DISCHARGE HOME Condition: Stable Latonya Lomeli Jul 26, 2017 17:18
[2017-07-26 17:44] LABS: AUTOMATED NEUTROPHIL # 4.2 TH/MM3 (1.8-7.7); BASOPHIL # 0.1 TH/MM3 (0-0.2); BASOPHIL % 0.7 % (0.0-2.0); EOSINOPHIL # 0.2 TH/MM3 (0-0.4); EOSINOPHIL % 1.9 % (0.0-4.0); HEMATOCRIT 32.4 % (35.0-46.0); HEMOGLOBIN 10.8 GM/DL (11.6-15.3); LYMPH % 44.2 % (9.0-44.0); LYMPHOCYTE # 3.9 TH/MM3 (1.0-4.8); MEAN CELL VOLUME 82.7 FL (80.0-100.0); MEAN CORPUSCULAR HEMOGLOBIN 27.5 PG (27.0-34.0); MEAN CORPUSCULAR HGB CONC 33.2 % (32.0-36.0); MEAN PLATELET VOLUME 7.8 FL (7.0-11.0); MONO % 4.8 % (0.0-8.0); MONOCYTE # 0.4 TH/MM3 (0-0.9); NEUT % 48.4 % (16.0-70.0); PLATELET COUNT 430 TH/MM3 (150-450); RED BLOOD COUNT 3.92 MIL/MM3 (4.00-5.30); RED CELL DISTRIBUTION WIDTH 15.5 % (11.6-17.2); WHITE BLOOD COUNT 8.8 TH/MM3 (4.0-11.0)
[2017-07-26 17:47] LABS: PROTHROMBIN TIME - PATIENT 10.1 SEC (9.8-11.6)
[2017-07-26 18:09] LABS: ALBUMIN 4.3 GM/DL (3.4-5.0); ALKALINE PHOSPHATASE 103 U/L (45-117); ALT (GPT) 21 U/L (10-53); AST (GOT) 19 U/L (15-37); BICARBONATE 30.7 MEQ/L (21.0-32.0); BLOOD UREA NITROGEN 17 MG/DL (7-18); CALCIUM 9.8 MG/DL (8.5-10.1); CHLORIDE 101 MEQ/L (98-107); CREATININE 0.87 MG/DL (0.50-1.00); GLOMERULAR FILTRATION RATE 80 ML/MIN (>89); GLUCOSE,RANDOM 93 MG/DL (74-106); SODIUM (NA) 138 MEQ/L (136-145); TOTAL BILIRUBIN ADULT 0.3 MG/DL (0.2-1.0); TOTAL PROTEIN 8.7 GM/DL (6.4-8.2); TROPONIN I LESS THAN 0.02 NG/ML (0.02-0.05)
[2017-07-26] MEDS ORDERED: ONDANSETRON HCL 4 MG/2 ML VIAL IV PUSH ONE (18:15)
[2017-07-26] MEDS ORDERED: MORPHINE SULFATE 2 MG/ML INJ IV PUSH ONE (18:15)
[2017-07-26 18:22] VITALS: BP 157/69; PULSE 88; RESP 18; O2SAT 98
[2017-07-26 18:42] VITALS: RESP 18
[2017-07-26] MEDS ORDERED: IOHEXOL 350 MG/ML 10 ML VIAL (for RAD DIAG) IVCONTRAST ONE (19:27)
--- NOTE | 2017-07-26 20:07 | RADRPT ---
EXAM DATE/TIME: 07/26/2017 19:25 [place] COMPARISON: No previous studies available for comparison. INDICATIONS : Epigastric pain status post colon resection two weeks ago. IV CONTRAST: 96 cc Omnipaque 350 (iohexol) IV ORAL CONTRAST: No oral contrast ingested. RADIATION DOSE: 6.64 CTDIvol (mGy) MEDICAL HISTORY : Carcinoma, colon. Hypertension. SURGICAL HISTORY : Hysterectomy. Colon resection. ENCOUNTER: Initial ACUITY: 2 weeks PAIN SCALE: 8/10 LOCATION: epigastric abdomen TECHNIQUE: Volumetric scanning of the abdomen and pelvis was performed. Using automated exposure control and ad justment of the mA and/or kV according to patient size, radiation dose was kept as low as reasonably achievable to obtain optimal diagnostic quality images. DICOM format image data is available electro nically for review and comparison. FINDINGS: Lung bases are clear. There is a recent laparotomy with multiple surgical yogi on the left charact eristic of partial left-sided colon resection. There are some thickened loops of bowel in the left ab domen new surgical yogi. The stomach is mildly distended. There is gas and feces within the colon. There is trace free fluid. No acute bony abnormalities. CONCLUSION: 1. Postoperative partial left colonic resection with some mildly thickened loops of bowel near the bess rgical yogi. There is fat stranding or edema within the mesentery. No definite bowel obstruction. Mild gastric distention. No free air. Solid viscera are unremarkable. Danis Prather MD on July 26, 2017 at 20:02 Board Certified Radiologist. This report was verified electronically.
--- NOTE | 2017-07-27 22:45 | EKG ---
Date Performed: 07/26/2017 Time Performed: 16:23:46 PTAGE: 62 years EKG: Sinus rhythm NORMAL ECG PREVIOUS TRACING : 04/23/2017 12.46 Since the prior tracing, there has been no significant richey delfin DOCTOR: Ciro Owens Interpretating Date/Time 07/27/2017 22:42:59
== END 2017-07-26 21:10 | disposition home or self-care (01) ==
LOC: NEPC 16:07
DX: R10.13 Epigastric pain (principal); Z85.038 Personal history of other malignant neoplasm of large intestine
CPT/HCPCS: 74177; 80053; 82550; 83690; 84484; 85025; 85610; 85730; 93005; 96374; 96375; 99285; J2270; J2405; Q9967